=== PATIENT | female | born 1945 | race Caucasian/White ===

== ENCOUNTER 2018-05-29 13:28 | Inpatient (IN) | payer MEDICARE, OTHER ==
[~2018-05-29] VITALS: Ht 157.5 cm; Wt 68.0 kg
--- NOTE | 2018-05-29 13:38 | NUR ---
Patient states she does not have her medication list with her. Her "friends" left her here with no name or number. She has no family here, only "cousins in [place]"
--- NOTE | 2018-05-29 14:08 | NUR ---
PT IS IN ROOM #2B UNDER DIRECT OBSERVATION OF DAVID ROBERTO. DR NOBLES EVALUATED THE PT.
--- NOTE | 2018-05-29 14:20 | NUR ---
Patient is heard screaming and cursing at ER staff. Patient is not following simple commands at this time. Reorientation, redirection and assurances were provided. Monitored closely.
[2018-05-29 14:26] LABS: BASOPHILS % (AUTO) 0.5 % (0.0-2.0); EOSINOPHILS % (AUTO) 0.3 % (0.0-7.0); HEMATOCRIT 37.7 % (31.2-41.9); HEMOGLOBIN 12.6 g/dL (10.9-14.3); LYMPHOCYTES % (AUTO) 17.3 % (20.5-51.5); MEAN CORPUSCULAR HEMOGLOBIN 29.1 uug (24.7-32.8); MEAN CORPUSCULAR HGB CONC 33 g/dL (32.3-35.6); MEAN CORPUSCULAR VOLUME 87.3 fL (75.5-95.3); MONOCYTES # (AUTO) 0.6 K/uL (2.0-10.0); NEUTROPHILS # (AUTO) 3.9 K/uL (1.8-8.9); NEUTROPHILS % (AUTO) 70.9 % (38.5-71.5); PLATELET COUNT (AUTO) 305 K/uL (179-408); RED BLOOD CELL COUNT(AUTO) 4.32 MIL/uL (3.63-4.92); WHITE BLOOD COUNT (AUTO) 5.5 K/uL (3.8-11.8)
--- NOTE | 2018-05-29 14:28 | NUR ---
Melany Quijano was called@[phone]. Dr Moore is at bedside.
[2018-05-29] MEDS ORDERED: LORAZEPAM 2 MG/1 ML VIAL IM ONE (14:30)
[2018-05-29] MEDS ORDERED: HALOPERIDOL LACTATE 5 MG/1 ML VIAL IM ONE (14:30)
[2018-05-29] MEDS ORDERED: diphenhydrAMINE 50 MG/1 ML VIAL IM ONE (14:30)
[2018-05-29] MEDS ORDERED: diphenhydrAMINE 50 MG/1 ML VIAL ONE (14:32)
[2018-05-29] MEDS ORDERED: LORAZEPAM 2 MG/1 ML VIAL ONE (14:32)
[2018-05-29] MEDS ORDERED: HALOPERIDOL LACTATE 5 MG/1 ML VIAL ONE (14:32)
[2018-05-29 14:50] LABS: CARBON DIOXIDE 30 mmol/L (21-32); CHLORIDE 100 mmol/L (98-107); CREATININE 0.8 mg/dL (0.6-1.3); GLUCOSE 87 mg/dL (74-106); THYROID STIMULATING HORMONE 0.037 mIU/mL (0.358-3.740); UREA NITROGEN, BLOOD 19 mg/dL (7-18)
[2018-05-29 14:55] LABS: ALANINE AMINOTRANSFERASE 18 U/L (14-59); ALKALINE PHOSPHATASE 169 U/L (50-136); ASPARTATE AMINOTRANSFERASE 28 U/L (15-37); BILIRUBIN,DIRECT 0.1 mg/dL (0.0-0.2); BILIRUBIN,TOTAL 0.3 mg/dL (0.2-1.0); TOTAL PROTEIN, SERUM 8.2 g/dL (6.4-8.2)
--- NOTE | 2018-05-29 14:55 | NUR ---
CODE TAMAYO IS CLEAR . PT REQUESTED FOOOD TRAY. PT IS EATING AT THIS TIME. SECURITY AT THE BEDSIDE. CONTINUE TO MONITOR THE PT.
[2018-05-29 14:56] LABS: ACETAMINOPHEN < 2.0 ug/mL (10-30); ETHANOL < 3 MG/DL (0-0)
[2018-05-29] MEDS ORDERED: OLANZAPINE 10 MG VIAL IM ONE ×2 (16:33→16:45)
[2018-05-29 16:54] LABS: *BILIRUBIN,URIN NEGATIVE (NEGATIVE); *BLOOD, URINE NEGATIVE (NEGATIVE); *CLARITY,URINE CLEAR (CLEAR); *COLOR,URINE YELLOW (YELLOW); *KETONES,URINE NEGATIVE (NEGATIVE); *PROTEIN,URINE NEGATIVE (NEGATIVE); *UROBILINOGEN,URINE 0.2 E.U./dl (NORMAL); LEUKOCYTE ESTERASE ,URINE NEGATIVE (NEGATIVE); NITRITE, URINE NEGATIVE (NEGATIVE); UGLUCOSE NEGATIVE (NEGATIVE)
[2018-05-29 17:01] LABS: *AMPHETAMINE, URINE NEGATIVE (NEGATIVE); *BARBITURATE, URINE NEGATIVE (NEGATIVE); *CANNABINOID, URINE NEGATIVE (NEGATIVE); *COCCAINE, URINE NEGATIVE (NEGATIVE); *OPIATE, URINE NEGATIVE (NEGATIVE); *PHENCYCLIDINE SCREEN,URINE NEGATIVE (NEGATIVE)
[2018-05-29 17:18] LABS: BACTERIA,URINE NONE SEEN /HPF (NONE SEEN); RBC,URINE 0-3 /HPF (0-3); SQUAMOUS EPITHELIAL CELL,UR FEW /HPF (NONE SEEN); WBC,URINE 0-3 /HPF (0-3)
--- NOTE | 2018-05-29 17:40 | NUR ---
PT IS RESTING COMFORTABLY IN BED. SITTER AT THE BEDSIDE. CONTINUE TO MONITOR THE PT.
--- NOTE | 2018-05-29 19:28 | NUR ---
RECEIVED SHIFT REPORT FROM YOSI LARRY.
--- NOTE | 2018-05-29 19:53 | NUR ---
GAVE ADMITTING REPORT TO YOSI ASHLEY.
--- NOTE | 2018-05-29 20:00 | NUR ---
72 Y. O. FEMALE BROUGHT TO MED SURG UNIT WHICH IS OVERFLOW OF GEROPSYCH FROM ER VIA GURNEY, ACCOMPANIED BY A STAFF. PT ON 5150 FOR GD. ACCORDING TO THE HOLD SHE HAVE ELOPED FROM HER PLACEMENTS TWICE AND BROKE A WINDOW AND SHE IS STATING :SUICIDAL INTENT TO OVERDOSE ON PILLS.RN CONCURS WITH THE HOLD. ADVISEMENT AND PATIENT RIGHTS HANDBOOK GIVEN. UPON FACE TO FACE ASSESSMENT, PT APPEARS TO REFLECT WHAT IS ON THE HOLD. PT IS A+OX2 AND PT AGREED TO CONTRACT FOR SAFETY INSIDE HOSPITAL. PT NEEDS REORIENTATION AND REDIRECTION.PT WANTS TO GO HOME. PT TELLING US MANAGER MORTGAGE AND ME THAT THERE'S A MAN WHO WANTS TO TAKE HER PROPERTY.SHE REALLY WANTS TO GO HOME.SENIOR CARE ASSESSMENT DONE.PT REFUSED TO TAKE HER PICTURES. WANTS TO GET OUT OF THE HOSPITAL. DEMAND STAFF TO GET HER A PHONE SO THAT SHE CALL. SITTER AT BEDSIDE FOR SAFETY. WILL CONTINUE TO MONITOR.
[2018-05-29 20:28] VITALS: BP 167/82
[2018-05-29] MEDS ORDERED: MAG HYDROX/AL HYDROX/SIMETH 30 ML LIQUID UDC PO PRN (21:00)
[2018-05-29] MEDS ORDERED: MAGNESIUM HYDROXIDE 30 ML LIQUID UDC PO PRN (21:00)
[2018-05-30] MEDS: LORAZEPAM 0.5 MG TABLET PO PRN (00:26)
[2018-05-30] MEDS: TEMAZEPAM 7.5 MG CAPSULE PO PRN (00:26)
--- NOTE | 2018-05-30 06:18 | NUR ---
PT SLEPT 7 HOURS. PT COMPLIANT WITH CARE BUT NEEDS REORIENTAION. PT HAD OCCASIONAL COUGH. PRESCRIBED MEDICATION GIVEN AND PT TOLERATED IT WELL. PT NEEDS REORIENTATION AND REDIRECTION. PT TRYING TO GET OUT OF THE BED. PT WANTS TO GO HOME. DEMANDING DOCTOR TO SEE HER RIGHT AWAY. EXPLAINED TO THE PT THAT SHE'S ON HOLD AND WHY SHE'S ON HOLD. PT SAID THE CONTENT ON THE PAPER FOR THE HOLD IS LYING. CHARGE NURSE AWARE OF THE SITUATION. SITTER AT BEDSIDE. SAFETY AND COMFORT PROVIDED.
--- NOTE | 2018-05-30 10:33 | NUR ---
PATIENT TO BE TRANSFEERED TO MHU FLOOR. REPORT GIVEN TO VIVIANA.
[2018-05-30] MEDS ORDERED: DEXTROSE 50% 50 ML DISP.SYRIN IV PRN (11:30)
[2018-05-30] MEDS ORDERED: INSULIN REGULAR, HUMAN 300 UNIT/3 ML VIAL SQ PRN (11:30)
[2018-05-30] MEDS: BLOOD SUGAR DIAGNOSTIC 1 EACH STRIP VI SCH ×3 (12:37→20:47)
--- NOTE | 2018-05-30 12:37 | NUR ---
Gps/Roll Forming Machine Set Up Operator- Patient verbalizing anger, claimed she wants to see the Doctor right away claimed she does not belong here, she does not have psych. issues. Patient requesting have her red purse by her, informed she cannot have her pruse w/ her, will be given back to her when she is ready to leave. Reviewed Psych.unit routine and rules. Eating lunch in the dinning room at this time.
--- NOTE | 2018-05-30 15:28 | NUR ---
Spoke with Lenny from [facility]. Asked for the list of the medications. Lenny informed that the patient lived there for only 2 weeks before patient eloped in December 2017. Lenny stated that he would email the list of the medications that he has on her.
[2018-05-30] MEDS ORDERED: ASCO500C18 PO (15:45)
--- NOTE | 2018-05-30 15:50 | NUR ---
Gps/Bee Breeder- Informed patient she can go to her assigned room 141-B , patient refused, stated," i dont need to be in any room, i am leaving as soon as i see my Doctor".Remains to stay iby the Nurses station , redirected patient to go to activity room, but refused.
[2018-05-30] MEDS ORDERED: CHOL200074 PO (15:52)
[2018-05-30] MEDS ORDERED: FERR325T28 PO (15:52)
[2018-05-30] MEDS ORDERED: DOCU-141 PO (15:52)
[2018-05-30] MEDS ORDERED: DULO60CA45 PO (15:52)
[2018-05-30] MEDS ORDERED: LEVO200T PO (15:56)
[2018-05-30 16:00] VITALS: BP 125/79
[2018-05-30] MEDS ORDERED: LOSA25TA3 PO (16:07)
[2018-05-30] MEDS ORDERED: FLUT1BLS IH (16:11)
[2018-05-30] MEDS ORDERED: MONT10TA22 PO (16:11)
--- NOTE | 2018-05-30 17:29 | NUR ---
Gps/Side Panel Hanger- Ambulates around with front wheel walker , demanding to use the phone . Instructed to stay in the dinning room during meals.Noted couple of time pushing the door , informed patient she is not leaving today. Showed her room.
[2018-05-30] MEDS ORDERED: AMIT50TA3 PO (17:33)
[2018-05-30] MEDS ORDERED: TRIA15CR2 TP (17:34)
[2018-05-30] MEDS ORDERED: MONT10TA25 PO (17:45)
[2018-05-30] MEDS ORDERED: CYCL5TAB PO (17:45)
[2018-05-30] MEDS ORDERED: RANI150C4 PO (17:45)
[2018-05-30] MEDS ORDERED: CYCL30DR EACHEYE (17:45)
[2018-05-30] MEDS ORDERED: FURO20TA4 PO (17:45)
[2018-05-30] MEDS: OLANZAPINE 2.5 MG TABLET PO SCH (20:47)
[2018-05-30 21:23] VITALS: BP 167/88
[2018-05-31] MEDS: CLONIDINE HCL 0.1 MG TABLET PO PRN (06:46)
[2018-05-31 07:30] VITALS: BP 150/91
[2018-05-31] MEDS: FAMOTIDINE 20 MG TABLET PO SCH (08:52)
[2018-05-31] MEDS: LOSARTAN POTASSIUM 25 MG TABLET PO SCH (08:53)
[2018-05-31] MEDS: DOCUSATE SODIUM 100 MG CAPSULE PO SCH (08:53)
[2018-05-31] MEDS: MONTELUKAST SODIUM 10 MG TABLET PO SCH (08:53)
[2018-05-31] MEDS: FUROSEMIDE 20 MG TABLET PO SCH (08:53)
[2018-05-31] MEDS: FERROUS SULFATE 325 MG TABEC PO SCH (08:53)
[2018-05-31] MEDS: LEVOTHYROXINE SODIUM 200 MCG TABLET PO SCH (09:19)
[2018-05-31] MEDS: FLUTICASONE/VILANTEROL 1 EACH BLST.W.DEV IH SCH (09:23)
[2018-05-31] MEDS: ACETAMINOPHEN 325 MG TABLET PO PRN (11:33)
--- NOTE | 2018-05-31 15:24 | NUR ---
Initial Discharge Instructions: Patient had been a resident at [facility] [[address] [place] [address]; [phone]]. Pt reportedly broke a window in that facility and attempted to elope. Spoke with patient's conservator, Alex Balderas ([phone]) who reports that the patient is not welcome back at that facility and would like patient placed in a more secure facility (i.e. locked SNF). Per pt, "I'm not going anywhere that my conservator tells me to go...I'm going back home." SW will continue to collaborate with pt, Conservator, and MD regarding most appropriate discharge plans for this patient. SW will form a safe and proper discharge
--- NOTE | 2018-05-31 15:29 | NUR ---
PT NOTED TO BE HIGHLY AGITATE AND EASILY IRRITABLE. DEMANDING TO BE LET GO FROM HOSPITAL BECAUSE "I'M THE ONLY SANE PERSON HERE." EXPLAINED TO PT THE NATURE OF THE HOLD, AND PT DOES NOT AGREE TO IT, NOR ACCEPTS ANY EXPLANATIONS. PT THREW PENCIL ON THE FLOOR, DEMANDING ALL STAFF MEMBERS ON THE FLOOR'S NAME ON THE UNIT BECAUSE SHE WILL SANDER EVERYONE BECAUSE STAFF IS "KILLING ME". NAMES PROVIDED FOR PATIENT. PT ALSO BELIEVES PSYCHATRIST HAS A PERSONAL VENDETTA AGAINST HER, AND IS ONLY KEEPING HER AT HOSPITAL BECAUSE "SHE DOESN'T LIKE ME." ATTEMPTED TO PROVIDE EXPLANATIONS FOR PT, BUT PT IS NOT RECEPTIVE TO ANY AT THIS TIME. NOTED TO BE HIGHLY FORGETFUL AND CONFUSED AT TIMES.
[2018-05-31 16:08] VITALS: BP 122/79
[2018-05-31] MEDS: NEOMY/BACITRAC/POLYMI OINT 28.35 GM TUBE TOP SCH (16:33)
[2018-05-31] MEDS: MUPIROCIN 2% OINT 22 GM TUBE NS SCH ×2 (17:45→20:23)
--- NOTE | 2018-05-31 18:22 | NUR ---
Gps/Online Producer- Placed patient on contact isolations as a results of + Staph Aureus growth to nares. Bactroban hetal. applied to nares as ordered. Instructed patient to wear facial mask when needing to get out of her room. Patient kept insisting she does not belong here, tends to be argumentative , will not listen to explanations. Vebalized she does not was to see the Psychiatrist anymore, she does not have Psych. issues per pt. though she also verbalized she's feeling depressed just being here.
[2018-05-31 20:06] VITALS: BP 140/83
[2018-05-31] MEDS: TEMAZEPAM 7.5 MG CAPSULE PO PRN (20:21)
[2018-05-31] MEDS: OLANZAPINE 2.5 MG TABLET PO SCH (20:21)
--- NOTE | 2018-06-01 05:54 | NUR ---
PATIENT SLEPT 4 HOURS. SITTER AT BEDSIDE. WILL CONTINUE TO MONITOR AND ASSESS.
[2018-06-01] MEDS: NEOMY/BACITRAC/POLYMI OINT 28.35 GM TUBE TOP SCH ×2 (05:57→16:03)
[2018-06-01] MEDS: FUROSEMIDE 20 MG TABLET PO SCH (08:00)
[2018-06-01] MEDS: FERROUS SULFATE 325 MG TABEC PO SCH (08:00)
[2018-06-01] MEDS: LEVOTHYROXINE SODIUM 200 MCG TABLET PO SCH (08:00)
[2018-06-01] MEDS: LOSARTAN POTASSIUM 25 MG TABLET PO SCH (08:00)
[2018-06-01] MEDS: FAMOTIDINE 20 MG TABLET PO SCH (08:00)
[2018-06-01] MEDS: DOCUSATE SODIUM 100 MG CAPSULE PO SCH (08:00)
[2018-06-01] MEDS: MONTELUKAST SODIUM 10 MG TABLET PO SCH (08:00)
[2018-06-01] MEDS: MUPIROCIN 2% OINT 22 GM TUBE NS SCH ×2 (08:45→20:49)
[2018-06-01] MEDS: FLUTICASONE/VILANTEROL 1 EACH BLST.W.DEV IH SCH (08:45)
[2018-06-01 12:00] VITALS: BP 134/76
[2018-06-01 13:33] LABS: *BILIRUBIN,URIN NEGATIVE (NEGATIVE); *BLOOD, URINE Trace-intact (NEGATIVE); *CLARITY,URINE CLEAR (CLEAR); *COLOR,URINE YELLOW (YELLOW); *KETONES,URINE NEGATIVE (NEGATIVE); *PROTEIN,URINE NEGATIVE (NEGATIVE); *UROBILINOGEN,URINE 0.2 E.U./dl (NORMAL); LEUKOCYTE ESTERASE ,URINE NEGATIVE (NEGATIVE); NITRITE, URINE NEGATIVE (NEGATIVE); UGLUCOSE NEGATIVE (NEGATIVE)
[2018-06-01 13:40] LABS: BACTERIA,URINE NONE SEEN /HPF (NONE SEEN); RBC,URINE 0-3 /HPF (0-3); SQUAMOUS EPITHELIAL CELL,UR NONE SEEN /HPF (NONE SEEN); WBC,URINE NONE SEEN /HPF (0-3)
[2018-06-01 16:00] VITALS: BP 148/93
[2018-06-01] MEDS ORDERED: OLANZAPINE ZYDIS 5 MG TAB.RAPDIS PO ONE (16:00)
--- NOTE | 2018-06-01 17:37 | NUR ---
PT IS HIGHLY IRRITABLE AND ARGUMENTATIVE. THREATENING TO SANDER STAFF FOR COMPROMISING HER PATIENTS RIGHTS BY NOT RELEASING HER. ATTEMPTS TO EDUCATE AND EXPLAIN TO PT ARE UNHEARD, DUE TO PT NOT BEING RECEPTIVE TO WHAT SHE IS BEING TOLD. BELIEVES STAFF IS CONSPIRING TO KEEP HER IN THE HOSPITAL. PT NEEDY, MANIPULATIVE AND DEMANDING. EVEN WHEN ALL NEEDS ARE MET, PT CONTINUES TO DEMAND DIFFERENT NEEDS, AND WILL THREATEN "I GUESS I'M JUST GONNA GO TO MY ROOM AND KILL MYSELF THEN." 1:1 SITTER WITH PT AT ALL TIMES. PT MAKES STATEMENTS SUCH "I JUST SAW THE DOCTOR AND SHE SAID SHE'S RELEASING ME TODAY AND TO DISCHARGE ME." WHEN SPEAKING TO PSYCHIATRIST, PSYCHIATRIST STATED SHE GAVE NO SUCH ORDER. REMAINS ON ISOLATION AT THIS TIME.
[2018-06-01 20:01] VITALS: BP 148/87
[2018-06-01] MEDS: TEMAZEPAM 7.5 MG CAPSULE PO PRN (23:21)
[2018-06-02] MEDS: NEOMY/BACITRAC/POLYMI OINT 28.35 GM TUBE TOP SCH ×2 (05:32→16:17)
[2018-06-02 07:11] LABS: BILIRUBIN,TOTAL 0.2 mg/dL (0.2-1.0); CREATININE 0.8 mg/dL (0.6-1.3); MAGNESIUM 1.8 mg/dL (1.8-2.4); POTASSIUM 3.5 mmol/L (3.5-5.1); TOTAL PROTEIN, SERUM 7.5 g/dL (6.4-8.2)
[2018-06-02 07:52] LABS: BASOPHILS % (AUTO) 0.4 % (0.0-2.0); EOSINOPHILS % (AUTO) 0.8 % (0.0-7.0); HEMATOCRIT 36.9 % (31.2-41.9); HEMOGLOBIN 12.7 g/dL (10.9-14.3); LYMPHOCYTES # (AUTO) 1.1 K/uL (20.0-40.0); LYMPHOCYTES % (AUTO) 21.7 % (20.5-51.5); MEAN CORPUSCULAR HEMOGLOBIN 29.4 uug (24.7-32.8); MEAN CORPUSCULAR HGB CONC 34 g/dL (32.3-35.6); MEAN CORPUSCULAR VOLUME 85.7 fL (75.5-95.3); MONOCYTES # (AUTO) 0.8 K/uL (2.0-10.0); MONOCYTES % (AUTO) 15.5 % (0.0-11.0); NEUTROPHILS # (AUTO) 3.3 K/uL (1.8-8.9); NEUTROPHILS % (AUTO) 61.6 % (38.5-71.5); PLATELET COUNT (AUTO) 282 K/uL (179-408); RED BLOOD CELL COUNT(AUTO) 4.31 MIL/uL (3.63-4.92); WHITE BLOOD COUNT (AUTO) 5.3 K/uL (3.8-11.8)
[2018-06-02] MEDS: DOCUSATE SODIUM 100 MG CAPSULE PO SCH (08:04)
[2018-06-02] MEDS: MONTELUKAST SODIUM 10 MG TABLET PO SCH (08:04)
[2018-06-02] MEDS: FAMOTIDINE 20 MG TABLET PO SCH (08:05)
[2018-06-02] MEDS: LOSARTAN POTASSIUM 25 MG TABLET PO SCH (08:05)
[2018-06-02] MEDS: LEVOTHYROXINE SODIUM 200 MCG TABLET PO SCH (08:05)
[2018-06-02] MEDS: FERROUS SULFATE 325 MG TABEC PO SCH (08:05)
[2018-06-02] MEDS: FUROSEMIDE 20 MG TABLET PO SCH (08:05)
[2018-06-02] MEDS: LORAZEPAM 0.5 MG TABLET PO PRN ×2 (08:05→16:22)
[2018-06-02] MEDS: MUPIROCIN 2% OINT 22 GM TUBE NS SCH ×2 (08:06→20:01)
[2018-06-02] MEDS: FLUTICASONE/VILANTEROL 1 EACH BLST.W.DEV IH SCH (08:06)
[2018-06-02 08:09] VITALS: BP 184/109
[2018-06-02 09:00] VITALS: BP 138/75
[2018-06-02] MEDS ORDERED: OLANZAPINE 2.5 MG TABLET PO SCH ×2 (09:00→14:45)
[2018-06-02 11:19] LABS: BAND % (MANUAL) 2 % (0-10); LYMPHOCYTES % (MANUAL) 28 % (20-40); MONOCYTES % (MANUAL) 12 % (2-10); NEUTROPHILS % (MANUAL) 58 % (42-75)
[2018-06-02 15:28] VITALS: BP 161/94
[2018-06-02] MEDS: CLONIDINE HCL 0.1 MG TABLET PO PRN (16:22)
[2018-06-02] MEDS: ACETAMINOPHEN 325 MG TABLET PO PRN ×2 (16:22→21:09)
--- NOTE | 2018-06-02 19:18 | NUR ---
RECEIVED REPORT FROM AM SHIFT, CONT ON 1;1 SITTER FOR SAFETY. CONT TO MONITOR.
[2018-06-02 20:00] VITALS: BP 152/77
[2018-06-02] MEDS: OLANZAPINE 5 MG TABLET PO SCH (20:01)
--- NOTE | 2018-06-02 20:30 | NUR ---
PATIENT HAS EPISODES OF AGITATION, WANTING TO GO TO HER APARTMENT, CLAIM THAT SOMEONE TOOK ALL HER BELONGINGS IN HER APARTMENT. REDIRECT PATIENT THAT SHE LIVES IN A FACILITY, AND HER CONSERVATOR KNOWS WHERE ALL HER BELONGINGS, PATIENT NOT EASILY REDIRECTED, KEEPING SAYING THAT SOMEBODY WILL COME IN TO PICK HER UP. CONT ON 1;1 SITTER, FOR SAFETY.
[2018-06-02] MEDS: TEMAZEPAM 7.5 MG CAPSULE PO PRN (21:10)
--- NOTE | 2018-06-02 22:24 | NUR ---
GIVEN RESTORIL WITH NO ADVERSE REACTION NOTED, MEDICATION HAS SOME EFFECTIVENESS, PATIENT CALM AT THIS TIME, STAY IN BED, BUT RELAX, CONT TO MONITOR.
--- NOTE | 2018-06-03 05:36 | NUR ---
PATIENT SLEPT FOR 7 HRS, CONT 1;1 SITTER FOR SAFETY. PATIENT COOPERATES WITH CARE AFTER ENCOURAGEMENT. CONT TO REDIRECT BEHAVIOR, STATING THAT HIS CONSERVATOR STEEL HER BELONGINGS. CONT TO MONITOR.
[2018-06-03] MEDS: NEOMY/BACITRAC/POLYMI OINT 28.35 GM TUBE TOP SCH ×2 (06:20→16:35)
--- NOTE | 2018-06-03 07:50 | NUR ---
Received patient asleep on low back rest, not in any form of distress. Bed in low position, side rails up x 2, with 1 to 1 county administrator at bedside. Will continue to monitor.
[2018-06-03] MEDS: OLANZAPINE 2.5 MG TABLET PO SCH ×3 (08:38→16:34)
[2018-06-03] MEDS: DOCUSATE SODIUM 100 MG CAPSULE PO SCH (08:39)
[2018-06-03] MEDS: MONTELUKAST SODIUM 10 MG TABLET PO SCH (08:39)
[2018-06-03] MEDS: FAMOTIDINE 20 MG TABLET PO SCH (08:39)
[2018-06-03] MEDS: LEVOTHYROXINE SODIUM 200 MCG TABLET PO SCH (08:39)
[2018-06-03] MEDS: FUROSEMIDE 20 MG TABLET PO SCH (08:39)
[2018-06-03] MEDS: FERROUS SULFATE 325 MG TABEC PO SCH (08:39)
[2018-06-03] MEDS: FLUTICASONE/VILANTEROL 1 EACH BLST.W.DEV IH SCH (08:39)
[2018-06-03] MEDS: MUPIROCIN 2% OINT 22 GM TUBE NS SCH ×2 (08:40→20:42)
[2018-06-03] MEDS: LOSARTAN POTASSIUM 25 MG TABLET PO SCH (08:47)
--- NOTE | 2018-06-03 10:55 | NUR ---
Patient was transferred to MHU room 139A, isolation removed.
--- NOTE | 2018-06-03 11:28 | NUR ---
Firearms Report: Field Sales Engineer completed and submitted [employer]J firearms report for GD certification.
[2018-06-03] MEDS ORDERED: DIVALPROEX SPRINKLE 125 MG CAP.SPRINK PO SCH (13:00)
[2018-06-03 16:56] VITALS: BP 158/96
--- NOTE | 2018-06-03 17:05 | NUR ---
GPS: NURSING: PATIENT REPORT OF FEELING ANXIOUS AND WANTS MEDICATION FOR ANXIETY. ADMINISTER MEDICATIONS AND WILL CONTINUE TO MONITOR BEHAVIOR.
[2018-06-03] MEDS: LORAZEPAM 0.5 MG TABLET PO PRN (17:08)
[2018-06-03] MEDS: OLANZAPINE 5 MG TABLET PO SCH (20:42)
[2018-06-03 20:50] VITALS: BP 137/66
[2018-06-03] MEDS: TEMAZEPAM 7.5 MG CAPSULE PO PRN (21:48)
[2018-06-03] MEDS: ACETAMINOPHEN 325 MG TABLET PO PRN (21:49)
[2018-06-04] MEDS ORDERED: MAGNESIUM HYDROXIDE 30 ML LIQUID UDC PO PRN (06:45)
[2018-06-04] MEDS: LEVOTHYROXINE SODIUM 200 MCG TABLET PO SCH (06:51)
[2018-06-04 07:30] VITALS: BP 158/95
[2018-06-04] MEDS: FUROSEMIDE 20 MG TABLET PO SCH (08:25)
[2018-06-04] MEDS: OLANZAPINE 2.5 MG TABLET PO SCH ×3 (08:25→16:30)
[2018-06-04] MEDS: FERROUS SULFATE 325 MG TABEC PO SCH (08:29)
[2018-06-04] MEDS: FAMOTIDINE 20 MG TABLET PO SCH (08:30)
[2018-06-04] MEDS: MONTELUKAST SODIUM 10 MG TABLET PO SCH (08:30)
[2018-06-04] MEDS: DOCUSATE SODIUM 100 MG CAPSULE PO SCH (08:30)
[2018-06-04] MEDS: NEOMY/BACITRAC/POLYMI OINT 28.35 GM TUBE TOP SCH ×2 (08:32→21:00)
[2018-06-04] MEDS: MUPIROCIN 2% OINT 22 GM TUBE NS SCH ×2 (08:35→20:58)
[2018-06-04] MEDS: FLUTICASONE/VILANTEROL 1 EACH BLST.W.DEV IH SCH (08:35)
[2018-06-04] MEDS: LOSARTAN POTASSIUM 50 MG TABLET PO SCH (08:37)
[2018-06-04 17:28] VITALS: BP 146/78
[2018-06-04 20:11] VITALS: BP 146/66
[2018-06-04] MEDS: OLANZAPINE 5 MG TABLET PO SCH (20:59)
[2018-06-04] MEDS: ACETAMINOPHEN 325 MG TABLET PO PRN (21:56)
[2018-06-04] MEDS: TEMAZEPAM 7.5 MG CAPSULE PO PRN (22:38)
[2018-06-05] MEDS: LEVOTHYROXINE SODIUM 200 MCG TABLET PO SCH (06:10)
--- NOTE | 2018-06-05 06:12 | NUR ---
Pt complains that she needs stronger pain meds, states that she usually takes "8 tylenols" or oxycodone. Pt states that she is in severe pain 12/12 all over her body. Pt obliged to take PRN Tylenol. Pt states that she wants to go home. Pt states that she does not need a psychiatrist. Pt complains that she has not seen her medical doctor. Pt is very labile, needy, demanding and easily irritated. Pt complied with taking meds. Redirected accordingly.
[2018-06-05] MEDS: FUROSEMIDE 20 MG TABLET PO SCH (08:25)
[2018-06-05] MEDS: FAMOTIDINE 20 MG TABLET PO SCH (08:25)
[2018-06-05] MEDS: FLUTICASONE/VILANTEROL 1 EACH BLST.W.DEV IH SCH (08:25)
[2018-06-05] MEDS: MONTELUKAST SODIUM 10 MG TABLET PO SCH (08:25)
[2018-06-05] MEDS: FERROUS SULFATE 325 MG TABEC PO SCH (08:25)
[2018-06-05] MEDS: DOCUSATE SODIUM 100 MG CAPSULE PO SCH (08:25)
[2018-06-05] MEDS: OLANZAPINE 2.5 MG TABLET PO SCH ×2 (08:25→13:06)
[2018-06-05] MEDS: NEOMY/BACITRAC/POLYMI OINT 28.35 GM TUBE TOP SCH (08:26)
[2018-06-05] MEDS: MUPIROCIN 2% OINT 22 GM TUBE NS SCH (08:27)
[2018-06-05] MEDS: LOSARTAN POTASSIUM 50 MG TABLET PO SCH (08:29)
[2018-06-05 08:31] VITALS: BP 181/95
[2018-06-05] MEDS: LORAZEPAM 0.5 MG TABLET PO PRN ×2 (10:12→15:19)
[2018-06-05] MEDS: ACETAMINOPHEN 325 MG TABLET PO PRN (11:52)
--- NOTE | 2018-06-05 12:25 | NUR ---
Discharge Note: Patient will be discharged to [facility] [[address] [place] [address]; [phone]] via ambulance. Please arrange an ambulance for this patient. Spoke with Re at the facility who states they are ready to accept the patient today. Spoke with patients Conservator, Alex Balderas ([phone]) who is aware and agreeable with discharge plans. Patient is aware of discharge plans and is cooperative. Patient will follow-up at the facility with Dr. Adorno (Solution Spec) and Dr. Valle (Psychiatrist).
[2018-06-05 13:30] VITALS: BP 164/80
[2018-06-05] MEDS: CLONIDINE HCL 0.1 MG TABLET PO PRN (13:37)
--- NOTE | 2018-06-05 15:44 | NUR ---
GROUP ACTIVITY NOTE: GOAL Patient will actively participate in the group activity of the day or relax out in the patio room with fellow patients. INTERVENTION Leach Runner invited patient to participate in a group activity consisting of crossword puzzles and coloring held from 10:30-11:15 am out in the patio. RESPONSE The patient expressed interest in the activity . The pt. also asked if they can be given time to go outside in the patio. The pt. relaxed outside as she interacted with peers and SW. The pt. was very grateful for time out in the patio stating, Thank you, I needed some sunlight. The pt. remained calm and cooperative throughout activity. PLAN Patient will be invited to attend the next group activity.
[2018-06-05 16:00] VITALS: BP 141/79
--- NOTE | 2018-06-05 16:00 | NUR ---
GPS: Discharge Note: Patient Alert and oriented x3. Patient ambulatory with mild weak gait and continent, compliant with medication, care, able to make needs known. Denies any SI/HI, denies any AH/VH. Patient noted to be hypertensive and tachycardic and medication provided and administered. Patient provided with discharge instructions, verbalized understanding, encourage to report any SI/ HI . AV/VH to nursing staff at the facility. Patient will be discharged to [facility] [[address] [place] [address]; [phone]] via ambulance. Patient will follow-up at the facility with Dr. Adorno (Carbon Paper Coating Machine Setter) and Dr. Valle (Psychiatrist). Belonging given and accounted for, and question and concerns address. Patient refuse to take photos of bilateral feet.
[2018-06-05 16:17] VITALS: BP 164/80
--- NOTE | 2018-06-05 16:33 | NUR ---
patient current blood pressure 120/79, heart rate 114 patient continues anxious about placement frequent redirection needed for emotional support. patient provided with Ativan PRN for anxiety earlier however continued to pace about placement, patient conservator agreed to placement and patient is aware spoke with YOSI Sánchez Bank Guard at [facility] , aware of patient anxiety and current HR, agreed to accept patient.
[2018-06-05 16:37] VITALS: BP 120/79
--- NOTE | 2018-06-05 16:40 | NUR ---
Discharge via ambulance stable condition
== END 2018-06-05 16:40 | DRG 885 ==
LOC: ER 13:28 → GPSOV 19:53 → GPS 05-30 11:30 → MED 06-01 00:43 → GPSOV 06-01 01:22 → GPS 06-03 10:58
PROVIDERS: ADMIT Psychiatry & Neurology Psychiatry; ATTEND Nurse Practitioner Acute Care
DX: F23 Brief psychotic disorder (principal); F04 Amnestic disorder due to known physiological condition; F02.81 Dementia in other diseases classified elsewhere, unspecified severity, with behavioral disturbance; G30.9 Alzheimer's disease, unspecified; Z96.642 Presence of left artificial hip joint; Z96.652 Presence of left artificial knee joint; M19.072 Primary osteoarthritis, left ankle and foot; G20 Parkinson's disease; E78.5 Hyperlipidemia, unspecified; Z22.322 Carrier or suspected carrier of Methicillin resistant Staphylococcus aureus; L84 Corns and callosities; E11.9 Type 2 diabetes mellitus without complications; Z79.899 Other long term (current) drug therapy; M20.42 Other hammer toe(s) (acquired), left foot; M24.875 Other specific joint derangements left foot, not elsewhere classified; E07.81 Sick-euthyroid syndrome; I10 Essential (primary) hypertension; F41.8 Other specified anxiety disorders; M21.40 Flat foot [pes planus] (acquired), unspecified foot
CPT/HCPCS: 36415; 70030-TC; 70450; 71045; 73630; 80307; 83605; 83735; 84100; 84443; 84481; 85025; 85730; 87040; 87077; 87086; 93005; A4663; G0480; G0480-TC; J1200; J1630; J2060; J2358

== ENCOUNTER 2018-08-13 11:38 | Inpatient (IN) | payer MEDICARE, MEDICAID ==
[~2018-08-13] VITALS: Ht 170.2 cm; Wt 69.4 kg
[~2018-08-13 11:38] MED LIST: AMIT50TA3 PO; ASCO500C18 PO; CHOL200074 PO; CYCL30DR EACHEYE; CYCL5TAB PO; DOCU-141 PO; DULO60CA45 PO; FERR325T28 PO; FLUT1BLS IH; FURO20TA4 PO; LEVO200T PO; LOSA25TA3 PO; MONT10TA22 PO; MONT10TA25 PO; RANI150C4 PO; TRIA15CR2 TP
[2018-08-13] MEDS ORDERED: MAGN400O6 PO (12:16)
[2018-08-13] MEDS ORDERED: ACET325T53 PO (12:16)
[2018-08-13] MEDS ORDERED: LINA145C PO (12:16)
[2018-08-13] MEDS ORDERED: NITR0.4T SL (12:16)
[2018-08-13] MEDS ORDERED: FLUT1BLS IH (12:16)
[2018-08-13] MEDS ORDERED: SACC250C PO (12:16)
[2018-08-13] MEDS ORDERED: FAMO-132 PO (12:16)
[2018-08-13] MEDS ORDERED: MONT10TA22 PO (12:16)
[2018-08-13] MEDS ORDERED: LIDO30AD10 TD (12:16)
[2018-08-13] MEDS ORDERED: OLAN2.5T3 PO (12:16)
[2018-08-13] MEDS ORDERED: CRAN1TAB3 PO (12:16)
[2018-08-13] MEDS ORDERED: TRAZ-182 PO (12:16)
[2018-08-13] MEDS ORDERED: LEVO500T2 PO (12:16)
--- NOTE | 2018-08-13 12:30 | NUR ---
Per pt may be d/c back to her SNF. [facility] was called by Reinaldo Elliott LVN, eta [phone], trip#[id number].
--- NOTE | 2018-08-13 12:50 | NUR ---
Pt eating lunch, NAD noted.
--- NOTE | 2018-08-13 13:08 | NUR ---
Per he spoke with via telephone and pt to be admitted to m/s.
[2018-08-13 13:33] LABS: BASOPHILS % (AUTO) 0.6 % (0.0-2.0); EOSINOPHILS % (AUTO) 0.1 % (0.0-7.0); HEMATOCRIT 36.6 % (31.2-41.9); HEMOGLOBIN 12.1 g/dL (10.9-14.3); LYMPHOCYTES # (AUTO) 1.1 K/uL (20.0-40.0); LYMPHOCYTES % (AUTO) 20.8 % (20.5-51.5); MEAN CORPUSCULAR HEMOGLOBIN 27.8 uug (24.7-32.8); MEAN CORPUSCULAR HGB CONC 33 g/dL (32.3-35.6); MEAN CORPUSCULAR VOLUME 84.2 fL (75.5-95.3); MONOCYTES # (AUTO) 0.6 K/uL (2.0-10.0); MONOCYTES % (AUTO) 11.4 % (0.0-11.0); NEUTROPHILS # (AUTO) 3.6 K/uL (1.8-8.9); NEUTROPHILS % (AUTO) 67.1 % (38.5-71.5); PLATELET COUNT (AUTO) 282 K/uL (179-408); RED BLOOD CELL COUNT(AUTO) 4.35 MIL/uL (3.63-4.92); WHITE BLOOD COUNT (AUTO) 5.4 K/uL (3.8-11.8)
[2018-08-13 13:39] LABS: CARBON DIOXIDE 29 mmol/L (21-32); CHLORIDE 92 mmol/L (98-107); CREATININE 0.8 mg/dL (0.6-1.3); GLUCOSE 133 mg/dL (74-106); POTASSIUM 3.7 mmol/L (3.5-5.1); UREA NITROGEN, BLOOD 14 mg/dL (7-18)
--- NOTE | 2018-08-13 13:40 | NUR ---
Attempted to give report, assigned m/s nurse to call back.
[2018-08-13 13:45] LABS: ALANINE AMINOTRANSFERASE 18 U/L (14-59); ALKALINE PHOSPHATASE 132 U/L (50-136); ASPARTATE AMINOTRANSFERASE 19 U/L (15-37); BILIRUBIN,DIRECT 0.1 mg/dL (0.0-0.2); BILIRUBIN,TOTAL 0.3 mg/dL (0.2-1.0); TOTAL PROTEIN, SERUM 8.3 g/dL (6.4-8.2)
--- NOTE | 2018-08-13 14:20 | NUR ---
SBAR report given to Katie via telephone.
--- NOTE | 2018-08-13 14:21 | NUR ---
Pt trans to m/s floor, NAD noted.
[2018-08-13] MEDS: GUAIFENESIN/DEXTROMETHORPHAN 5 ML UDC PO PRN ×2 (15:24→21:27)
--- NOTE | 2018-08-13 15:30 | NUR ---
ADMITTED 73 FEMALE WITH DX: BRONCHITIS. PATIENT ALERT AND ORIENTED. WELL GROOMED WITH SUNGLASSES ON. 02 SATURATION ON ADMISSION WAS 90% PUT PATIENT ON 2L NASAL CANNULA AND 02 IS NOW 98%. WAS SEEN AND EXAMINED BY DR. SALINAS. SAFETY MEASURES INITIATED. BED IS LOW AND LOCKED, CALL LIGHT WITHIN REACH. WILL CONTINUE TO MONITOR.
[2018-08-13 15:31] VITALS: BP 144/75
[2018-08-13] MEDS ORDERED: MAGNESIUM HYDROXIDE 30 ML LIQUID UDC PO PRN (17:15)
[2018-08-13] MEDS ORDERED: OLANZAPINE 2.5 MG TABLET PO SCH (17:15)
[2018-08-13] MEDS ORDERED: NITROGLYCERIN 0.4 MG/TAB BOTTLE SL PRN (17:15)
[2018-08-13] MEDS: ALBUTEROL SULFATE 2.5 MG/3 ML NEBU NEB PRN ×2 (17:37→20:05)
--- NOTE | 2018-08-13 18:10 | NUR ---
PATIENT LEFT TO CT SCAN VIA WHEELCHAIR
--- NOTE | 2018-08-13 18:37 | NUR ---
PATIENT RETURNED FROM CT SCAN
--- NOTE | 2018-08-13 18:47 | NUR ---
INSERTED IV CATH ON THE LEFT FA #22 GAUGE.
--- NOTE | 2018-08-13 19:20 | NUR ---
Received patient lying in bed. AAOX4. In no acute distress. On O2 at 2LPM via NC in place. O2 sat at 95%. NSR on tele at 102/min. Noted with frequent moist cough. Requested for RT to provide breathing treatment. IV site on left FA intact and patent. Safety measure initiated and call quintero within reach.
[2018-08-13] MEDS ORDERED: LEVOFLOXACIN 500 MG/D5W 500 MG in PREMIXED 1 EACH IV SCH (20:00)
[2018-08-13] MEDS: ACIDOPHILUS/BULGARICUS CHEW TAB PO SCH (20:00)
[2018-08-13 20:39] VITALS: BP 117/50
[2018-08-13] MEDS: TRAZODONE 50 MG TABLET PO SCH (21:47)
[2018-08-13] MEDS ORDERED: TRAZODONE 50 MG TABLET GT ONE (22:45)
[2018-08-13] MEDS ORDERED: TRAZODONE 50 MG TABLET PO ONE (23:25)
[2018-08-14] VITALS: BP 130/67
--- NOTE | 2018-08-14 00:43 | NUR ---
PATIENT REMOVED TELE MONITOR, REFUSED TO HAVE IT PUT BACK EVEN AFTER PROVIDING EDUCATION. STATED "I WANT TO LEAVE IT OFF TONIGHT, WE CAN PUT IT BACK TOMORROW MORNING". CHARGE NURSE MARCE MADE AWARE.
[2018-08-14 04:00] VITALS: BP 132/62
--- NOTE | 2018-08-14 06:13 | NUR ---
AAOX4. In no acute distress. On O2 at 2LPM via NC in place. With frequent moist cough, breathing treatment provided by RT PRN.Cough medication given PRN per order. No adverse reaction noted from IV ABX.Needs attended to and met. Still refusing to have tele monitor. Safety measure maintained and call quintero within reach.
[2018-08-14] MEDS: LEVOTHYROXINE SODIUM 200 MCG TABLET PO SCH ×2 (07:00→11:50)
[2018-08-14] MEDS: PANTOPRAZOLE SODIUM 40 MG TABLET.DR PO SCH ×2 (07:00→11:50)
--- NOTE | 2018-08-14 07:01 | NUR ---
Informed day shift nurse Carmen that patient is refusing to take Synthroid and Protonix, until after breakfast. Carmen will provide medication this AM.
[2018-08-14 08:52] VITALS: BP 143/66
[2018-08-14] MEDS: ALBUTEROL SULFATE 2.5 MG/3 ML NEBU NEB PRN (08:56)
[2018-08-14] MEDS ORDERED: Medication Not On Formulary EA (Saccharomyces Boulardii (Florastor) 250 MG) PO SCH (09:00)
[2018-08-14] MEDS: ACIDOPHILUS/BULGARICUS CHEW TAB PO SCH ×2 (09:08→17:40)
[2018-08-14] MEDS: MONTELUKAST SODIUM 10 MG TABLET PO SCH (09:09)
[2018-08-14] MEDS: OLANZAPINE 2.5 MG TABLET PO SCH ×2 (09:09→20:31)
[2018-08-14] MEDS: LOSARTAN POTASSIUM 25 MG TABLET PO SCH (09:09)
[2018-08-14] MEDS: GUAIFENESIN/DEXTROMETHORPHAN 5 ML UDC PO PRN ×2 (09:10→18:29)
[2018-08-14] MEDS: LIDOCAINE 5% PATCH TD SCH (09:10)
[2018-08-14 09:11] LABS: BASOPHILS % (AUTO) 0.4 % (0.0-2.0); EOSINOPHILS % (AUTO) 0.3 % (0.0-7.0); HEMATOCRIT 37.3 % (31.2-41.9); HEMOGLOBIN 12.3 g/dL (10.9-14.3); LYMPHOCYTES # (AUTO) 1.5 K/uL (20.0-40.0); LYMPHOCYTES % (AUTO) 30.8 % (20.5-51.5); MEAN CORPUSCULAR HEMOGLOBIN 28.1 uug (24.7-32.8); MEAN CORPUSCULAR HGB CONC 33 g/dL (32.3-35.6); MEAN CORPUSCULAR VOLUME 85.1 fL (75.5-95.3); MONOCYTES # (AUTO) 0.7 K/uL (2.0-10.0); MONOCYTES % (AUTO) 15.7 % (0.0-11.0); NEUTROPHILS # (AUTO) 2.5 K/uL (1.8-8.9); NEUTROPHILS % (AUTO) 52.8 % (38.5-71.5); PLATELET COUNT (AUTO) 291 K/uL (179-408); RED BLOOD CELL COUNT(AUTO) 4.38 MIL/uL (3.63-4.92); WHITE BLOOD COUNT (AUTO) 4.7 K/uL (3.8-11.8)
[2018-08-14 09:23] LABS: ALANINE AMINOTRANSFERASE 19 U/L (14-59); ALKALINE PHOSPHATASE 129 U/L (50-136); ASPARTATE AMINOTRANSFERASE 19 U/L (15-37); BILIRUBIN,TOTAL 0.3 mg/dL (0.2-1.0); CARBON DIOXIDE 30 mmol/L (21-32); CHLORIDE 95 mmol/L (98-107); CHOLESTEROL 207 mg/dL (<200); CREATININE 0.7 mg/dL (0.6-1.3); GLUCOSE 109 mg/dL (74-106); HDL CHOLESTEROL 66 mg/dL (40-60); MAGNESIUM 1.9 mg/dL (1.8-2.4); PHOSPHOROUS 4.4 mg/dL (2.5-4.9); POTASSIUM 4.2 mmol/L (3.5-5.1); TOTAL PROTEIN, SERUM 8.3 g/dL (6.4-8.2); TRIGLYCERIDES 59 MG/DL (30-150); UREA NITROGEN, BLOOD 13 mg/dL (7-18)
[2018-08-14 09:51] LABS: LYMPHOCYTES % (MANUAL) 31 % (20-40); MONOCYTES % (MANUAL) 11 % (2-10); NEUTROPHILS % (MANUAL) 58 % (42-75)
[2018-08-14 09:55] LABS: THYROID STIMULATING HORMONE 8.172 mIU/mL (0.358-3.740)
[2018-08-14 11:38] VITALS: BP 128/58
[2018-08-14] MEDS: FLUTICASONE/VILANTEROL 1 EACH BLST.W.DEV INH SCH (11:48)
[2018-08-14] MEDS ORDERED: methylPREDNISolone SOD SUCC 125 MG/2 ML VIAL IV SCH (14:00)
[2018-08-14] MEDS: GUAIFENESIN LA 600 MG TABLET.SA PO SCH ×2 (14:04→20:32)
[2018-08-14] MEDS ORDERED: CEFTRIAXONE 1 G in IV DEXTROSE 5% 50 ML IV SCH (15:00)
[2018-08-14 15:31] VITALS: BP 153/66
[2018-08-14] MEDS: ALBUTEROL SULFATE 2.5 MG/3 ML NEBU NEB SCH ×2 (16:05→19:20)
[2018-08-14] MEDS: IPRATROPIUM BROMIDE 0.5 MG/2.5 ML NEBU NEB SCH ×2 (16:05→19:20)
[2018-08-14 19:15] VITALS: BP 142/63
--- NOTE | 2018-08-14 19:20 | NUR ---
Received patient sitting at the side of the bed. AAOX4. In no acute distress. On O2 at 2LPM via NC in place. Still noted with occasional moist cough. Denies any pain or SOB. Safety measure initiated and call quintero within reach.
[2018-08-14] MEDS: ATORVASTATIN 20 MG TABLET PO SCH (20:32)
[2018-08-14] MEDS: LEVOFLOXACIN 500 MG TABLET PO SCH (20:32)
[2018-08-14] MEDS: ACETAMINOPHEN 325 MG TABLET PO PRN (21:09)
[2018-08-14] MEDS: predniSONE 20 MG TABLET PO SCH (22:07)
[2018-08-14] MEDS: TRAZODONE 50 MG TABLET PO SCH (22:07)
[2018-08-14] MEDS ORDERED: TRAZODONE 100 MG TABLET PO ONE (22:30)
[2018-08-15] MEDS: predniSONE 20 MG TABLET PO SCH ×3 (06:14→20:45)
--- NOTE | 2018-08-15 06:21 | NUR ---
Slept well last night. In no acute distress. On O2 at 2LPM via NC in place. Still with occasional moist cough. Denies any further pain. No SOB. Safety measure maintained and call quintero within reach.
[2018-08-15 06:54] LABS: BASOPHILS % (AUTO) 0.3 % (0.0-2.0); HEMATOCRIT 35.2 % (31.2-41.9); HEMOGLOBIN 11.7 g/dL (10.9-14.3); LYMPHOCYTES # (AUTO) 0.5 K/uL (20.0-40.0); LYMPHOCYTES % (AUTO) 12.1 % (20.5-51.5); MEAN CORPUSCULAR HEMOGLOBIN 28.3 uug (24.7-32.8); MEAN CORPUSCULAR HGB CONC 33 g/dL (32.3-35.6); MEAN CORPUSCULAR VOLUME 85.2 fL (75.5-95.3); MONOCYTES # (AUTO) 0.1 K/uL (2.0-10.0); MONOCYTES % (AUTO) 2.6 % (0.0-11.0); NEUTROPHILS # (AUTO) 3.8 K/uL (1.8-8.9); PLATELET COUNT (AUTO) 273 K/uL (179-408); RED BLOOD CELL COUNT(AUTO) 4.13 MIL/uL (3.63-4.92); WHITE BLOOD COUNT (AUTO) 4.4 K/uL (3.8-11.8)
[2018-08-15 06:59] LABS: CARBON DIOXIDE 28 mmol/L (21-32); CHLORIDE 97 mmol/L (98-107); CREATININE 0.7 mg/dL (0.6-1.3); GLUCOSE 150 mg/dL (74-106); MAGNESIUM 1.9 mg/dL (1.8-2.4); PHOSPHOROUS 4.8 mg/dL (2.5-4.9); POTASSIUM 4.4 mmol/L (3.5-5.1); UREA NITROGEN, BLOOD 17 mg/dL (7-18); URIC ACID 4.4 mg/dL (2.6-6.0)
--- NOTE | 2018-08-15 07:00 | NUR ---
Patient A/O 4, On O2 at 2LPM via NC in place. Still moist cough, crackles on auscultation. Denies any further pain. No SOB. Safety measure maintained and call quintero within reach.
[2018-08-15 07:18] LABS: THYROID STIMULATING HORMONE 2.234 mIU/mL (0.358-3.740)
[2018-08-15] MEDS: ALBUTEROL SULFATE 2.5 MG/3 ML NEBU NEB SCH ×4 (07:23→19:31)
[2018-08-15] MEDS: IPRATROPIUM BROMIDE 0.5 MG/2.5 ML NEBU NEB SCH ×4 (07:23→19:31)
[2018-08-15] MEDS ORDERED: LINZESS 145MCG CAPSULE PO SCH (07:30)
[2018-08-15] MEDS: LEVOTHYROXINE SODIUM 50 MCG TABLET PO SCH (07:43)
[2018-08-15] MEDS: PANTOPRAZOLE SODIUM 40 MG TABLET.DR PO SCH (07:43)
[2018-08-15] MEDS: LEVOTHYROXINE SODIUM 200 MCG TABLET PO SCH (07:44)
[2018-08-15] MEDS: LIDOCAINE 5% PATCH TD SCH (07:44)
[2018-08-15] MEDS: ACETAMINOPHEN 325 MG TABLET PO PRN ×2 (07:51→20:44)
[2018-08-15] MEDS: GUAIFENESIN/DEXTROMETHORPHAN 5 ML UDC PO PRN (08:07)
[2018-08-15] MEDS: ACIDOPHILUS/BULGARICUS CHEW TAB PO SCH ×2 (08:29→17:27)
[2018-08-15] MEDS: FLUTICASONE/VILANTEROL 1 EACH BLST.W.DEV INH SCH (08:29)
[2018-08-15] MEDS: MONTELUKAST SODIUM 10 MG TABLET PO SCH (08:30)
[2018-08-15] MEDS: CARBIDOPA/LEVODOPA 25-100MG TABLET PO SCH ×3 (08:30→17:26)
[2018-08-15] MEDS: OLANZAPINE 2.5 MG TABLET PO SCH ×2 (08:31→20:46)
[2018-08-15] MEDS: LOSARTAN POTASSIUM 25 MG TABLET PO SCH (08:35)
[2018-08-15] MEDS: GUAIFENESIN LA 600 MG TABLET.SA PO SCH ×2 (08:35→20:45)
[2018-08-15 11:28] VITALS: BP 125/66
[2018-08-15] MEDS ORDERED: TRAZODONE 50 MG TABLET PO PRN (12:45)
[2018-08-15] MEDS ORDERED: TRAZODONE 100 MG TABLET PO PRN (13:15)
[2018-08-15] MEDS: ACETYLCYSTEINE 20% 800 MG/4 ML VIAL NEB SCH ×2 (15:42→22:40)
[2018-08-15 16:00] VITALS: BP 129/66
--- NOTE | 2018-08-15 19:23 | NUR ---
Patient A/O 4, On O2 at 3LPM via NC in place was increased so patient is 94%. Still moist cough, crackles on auscultation. Denies any further pain. No SOB. orders cared out. Safety measure maintained and call quintero within reach.
[2018-08-15 20:00] VITALS: BP 130/72
[2018-08-15] MEDS: LEVOFLOXACIN 500 MG TABLET PO SCH (20:45)
[2018-08-15] MEDS: ATORVASTATIN 20 MG TABLET PO SCH (20:45)
--- NOTE | 2018-08-15 21:00 | NUR ---
Patient awake & alert watching TV, no SOB denies chest pain. Vital signs WNL. Routine night meds given. MD in room. Seen & examined by Dr. Mueller.
[2018-08-15] MEDS: ALBUTEROL SULFATE 2.5 MG/3 ML NEBU NEB PRN (22:40)
[2018-08-16] MEDS: predniSONE 20 MG TABLET PO SCH ×2 (05:28→06:18)
[2018-08-16] MEDS: PANTOPRAZOLE SODIUM 40 MG TABLET.DR PO SCH ×2 (05:28→06:16)
[2018-08-16] MEDS: LEVOTHYROXINE SODIUM 200 MCG TABLET PO SCH ×3 (05:31→06:19)
[2018-08-16] MEDS: LEVOTHYROXINE SODIUM 50 MCG TABLET PO SCH ×3 (05:31→06:20)
--- NOTE | 2018-08-16 05:46 | NUR ---
Patient refused getting her blood drawn. Patient refused to take her morning meds too. No sign of distress noted. Vital signs WNL.
[2018-08-16] MEDS: ACETYLCYSTEINE 20% 800 MG/4 ML VIAL NEB SCH ×2 (07:25→15:48)
[2018-08-16] MEDS: IPRATROPIUM BROMIDE 0.5 MG/2.5 ML NEBU NEB SCH ×3 (07:25→15:48)
[2018-08-16] MEDS: ALBUTEROL SULFATE 2.5 MG/3 ML NEBU NEB SCH ×3 (07:25→15:48)
--- NOTE | 2018-08-16 07:53 | NUR ---
Patient A/O 4, On O2 at 3L via NC in place. Still moist cough, crackles on auscultation. Denies any further pain. No SOB. Safety measure maintained and call quintero within reach.
[2018-08-16] MEDS ORDERED: KETOCONAZOLE 2% SHAMPOO 120 ML BOTTLE TP SCH (09:00)
[2018-08-16] MEDS: LIDOCAINE 5% PATCH TD SCH (09:16)
[2018-08-16] MEDS: ACIDOPHILUS/BULGARICUS CHEW TAB PO SCH ×2 (09:16→16:59)
[2018-08-16] MEDS: CARBIDOPA/LEVODOPA 25-100MG TABLET PO SCH ×3 (09:17→16:59)
[2018-08-16] MEDS: GUAIFENESIN LA 600 MG TABLET.SA PO SCH (09:17)
[2018-08-16] MEDS: MONTELUKAST SODIUM 10 MG TABLET PO SCH (09:17)
[2018-08-16] MEDS: LOSARTAN POTASSIUM 25 MG TABLET PO SCH (09:19)
[2018-08-16] MEDS: OLANZAPINE 2.5 MG TABLET PO SCH (09:20)
[2018-08-16] MEDS: FLUTICASONE/VILANTEROL 1 EACH BLST.W.DEV INH SCH (09:21)
[2018-08-16] MEDS: GUAIFENESIN/DEXTROMETHORPHAN 5 ML UDC PO PRN (09:29)
[2018-08-16 09:36] LABS: BASOPHILS % (AUTO) 0.2 % (0.0-2.0); HEMATOCRIT 36.2 % (31.2-41.9); HEMOGLOBIN 12.1 g/dL (10.9-14.3); LYMPHOCYTES # (AUTO) 0.8 K/uL (20.0-40.0); LYMPHOCYTES % (AUTO) 8.4 % (20.5-51.5); MEAN CORPUSCULAR HEMOGLOBIN 28.5 uug (24.7-32.8); MEAN CORPUSCULAR HGB CONC 33 g/dL (32.3-35.6); MEAN CORPUSCULAR VOLUME 85.6 fL (75.5-95.3); MONOCYTES # (AUTO) 0.4 K/uL (2.0-10.0); MONOCYTES % (AUTO) 4.8 % (0.0-11.0); NEUTROPHILS # (AUTO) 7.8 K/uL (1.8-8.9); NEUTROPHILS % (AUTO) 86.6 % (38.5-71.5); PLATELET COUNT (AUTO) 304 K/uL (179-408); RED BLOOD CELL COUNT(AUTO) 4.23 MIL/uL (3.63-4.92)
[2018-08-16 09:48] LABS: CARBON DIOXIDE 25 mmol/L (21-32); CHLORIDE 97 mmol/L (98-107); GLUCOSE 190 mg/dL (74-106); MAGNESIUM 1.9 mg/dL (1.8-2.4); PHOSPHOROUS 3.5 mg/dL (2.5-4.9); POTASSIUM 3.8 mmol/L (3.5-5.1); UREA NITROGEN, BLOOD 23 mg/dL (7-18)
[2018-08-16 11:08] VITALS: BP 131/74
--- NOTE | 2018-08-16 15:00 | NUR ---
PATIENT BECAME AGGRESSIVE AND FRUSTRATED
--- NOTE | 2018-08-16 16:42 | NUR ---
PATIENT WAS PUT ON HOLD [address] CHAMORRO PATIENT DISCHARGED TO MHU
== END 2018-08-16 17:09 | DRG 190 ==
LOC: ER 11:38 → MED 14:13 → TELE 17:26 → MED 08-14 14:44 → GPS 08-16 16:51
PROVIDERS: ADMIT Internal Medicine; ATTEND Internal Medicine
DX: J44.1 Chronic obstructive pulmonary disease with (acute) exacerbation (principal); J69.0 Pneumonitis due to inhalation of food and vomit; E87.1 Hypo-osmolality and hyponatremia; D68.59 Other primary thrombophilia; J90 Pleural effusion, not elsewhere classified; J98.11 Atelectasis; J44.0 Chronic obstructive pulmonary disease with (acute) lower respiratory infection; J40 Bronchitis, not specified as acute or chronic; M79.7 Fibromyalgia; E03.9 Hypothyroidism, unspecified; E78.5 Hyperlipidemia, unspecified; Z79.890 Hormone replacement therapy; Z87.891 Personal history of nicotine dependence; Z98.82 Breast implant status; Z96.642 Presence of left artificial hip joint; Z96.652 Presence of left artificial knee joint; Z96.1 Presence of intraocular lens; Z88.5 Allergy status to narcotic agent; F32.9 Major depressive disorder, single episode, unspecified; Z74.09 Other reduced mobility; F03.90 Unspecified dementia, unspecified severity, without behavioral disturbance, psychotic disturbance, mood disturbance, and anxiety; E11.65 Type 2 diabetes mellitus with hyperglycemia; E88.09 Other disorders of plasma-protein metabolism, not elsewhere classified; G20 Parkinson's disease; I11.9 Hypertensive heart disease without heart failure; M19.90 Unspecified osteoarthritis, unspecified site; Z79.51 Long term (current) use of inhaled steroids; R53.82 Chronic fatigue, unspecified; K21.9 Gastro-esophageal reflux disease without esophagitis; I70.0 Atherosclerosis of aorta; E87.79 Other fluid overload; D71 Functional disorders of polymorphonuclear neutrophils
CPT/HCPCS: 36415; 70030-TC; 71045; 71250; 82533; 83605; 83735; 84100; 84300; 84443; 84550; 85025; 87040; 93005; 93307; 94640; 94664; A4663; G0378; J0696; J1956; J2930; J3590; J7050; J7060; J7512

== ENCOUNTER 2018-08-16 17:05 | Inpatient (IN) | payer MEDICARE, MEDICAID ==
[~2018-08-16] VITALS: Ht 170.2 cm; Wt 71.7 kg
--- NOTE | 2018-08-16 17:00 | NUR ---
PT ARRIVED ON W/C ACCOMPANIED BY HOSPITAL STAFF, FROM [facility]. PT IS CURRENTLY ON AN INVOLUNTARY HOLD. PT IS AOX4, HYPERVERBAL, NEEDY, AND DEMANDING AT TIMES. PT VERBALIZES SHE WANTS TO LEAVE BECAUSE "I DON'T BELONG IN A PSYCH UNIT. DO I LOOK CRAZY TO YOU?" NO AGGRESSIVE OR COMBATIVE BEHAVIOR NOTED AT THIS TIME. ABLE TO MAKE ALL NEEDS KNOWN. DENIES SUICIDAL AND HOMICIDAL IDEATIONS.
[~2018-08-16 17:05] MED LIST changes: +ACET325T53 PO; -AMIT50TA3 PO; -ASCO500C18 PO; -CHOL200074 PO; +CRAN1TAB3 PO; -CYCL5TAB PO; -DULO60CA45 PO; +FAMO-132 PO; -FERR325T28 PO; +LEVO500T2 PO; +LIDO30AD10 TD; +LINA145C PO; +MAGN400O6 PO; -MONT10TA25 PO; +NITR0.4T SL; +OLAN2.5T3 PO; -RANI150C4 PO; +SACC250C PO; +TRAZ-182 PO; -TRIA15CR2 TP
[2018-08-16] MEDS ORDERED: MAG HYDROX/AL HYDROX/SIMETH 30 ML LIQUID UDC PO PRN (17:15)
[2018-08-16] MEDS ORDERED: MAGNESIUM HYDROXIDE 30 ML LIQUID UDC PO PRN ×2 (17:15→18:15)
[2018-08-16 17:17] VITALS: BP 160/80
[2018-08-16] MEDS ORDERED: ACETAMINOPHEN 325 MG TABLET PO PRN (18:15)
[2018-08-16] MEDS ORDERED: NITROGLYCERIN 0.4 MG/TAB BOTTLE SL PRN (18:15)
[2018-08-16 20:59] VITALS: BP 115/67
[2018-08-16] MEDS ORDERED: OLANZAPINE 2.5 MG TABLET PO SCH ×2 (21:00)
[2018-08-16] MEDS: ZOLPIDEM 5 MG TABLET PO PRN (22:10)
[2018-08-17] MEDS: LEVOTHYROXINE SODIUM 200 MCG TABLET PO SCH ×2 (06:45→08:22)
[2018-08-17] MEDS ORDERED: LEVOTHYROXINE SODIUM 200 MCG TABLET PO SCH (07:00)
[2018-08-17 07:30] VITALS: BP 169/82
[2018-08-17] MEDS: DOCUSATE SODIUM 100 MG CAPSULE PO SCH (08:22)
[2018-08-17] MEDS: FAMOTIDINE 20 MG TABLET PO SCH (08:23)
[2018-08-17] MEDS: LEVOFLOXACIN 500 MG TABLET PO SCH (08:23)
[2018-08-17] MEDS: predniSONE 20 MG TABLET PO SCH ×2 (08:23→17:17)
[2018-08-17] MEDS: ACIDOPHILUS/BULGARICUS CHEW TAB PO SCH ×2 (08:23→17:17)
[2018-08-17] MEDS: FUROSEMIDE 20 MG TABLET PO SCH (08:23)
[2018-08-17] MEDS: FLUTICASONE/VILANTEROL 1 EACH BLST.W.DEV IH SCH (08:24)
[2018-08-17] MEDS: LOSARTAN POTASSIUM 25 MG TABLET PO SCH (08:28)
[2018-08-17] MEDS: LEVOTHYROXINE SODIUM 50 MCG TABLET PO SCH (08:29)
[2018-08-17] MEDS: GUAIFENESIN/DEXTROMETHORPHAN 5 ML UDC PO PRN ×2 (08:49→21:26)
[2018-08-17] MEDS ORDERED: Medication Not On Formulary EA (Saccharomyces Boulardii (Florastor) 250 MG) PO SCH (09:00)
[2018-08-17] MEDS ORDERED: MONTELUKAST SODIUM 10 MG TABLET PO SCH (09:00)
[2018-08-17] MEDS ORDERED: ALBUTEROL SULFATE 2.5 MG/3 ML NEBU NEB PRN (10:45)
[2018-08-17] MEDS: IPRATROPIUM BROMIDE 0.5 MG/2.5 ML NEBU NEB SCH ×2 (14:15→21:11)
[2018-08-17] MEDS: ALBUTEROL SULFATE 2.5 MG/3 ML NEBU NEB SCH ×2 (14:15→21:11)
[2018-08-17 16:00] VITALS: BP 158/86
[2018-08-17] MEDS ORDERED: LEVOFLOXACIN 500 MG TABLET PO SCH (17:00)
[2018-08-17] MEDS: MONTELUKAST SODIUM 10 MG TABLET PO SCH (17:17)
[2018-08-17] MEDS: CYCLOSPORINE EACHEYE SCH (17:18)
[2018-08-17] MEDS: [UNRECOGNIZED DRUG - OTHER] EACHEYE SCH (17:18)
[2018-08-17 21:45] VITALS: BP 169/86
[2018-08-17 21:58] VITALS: BP 152/85
[2018-08-17] MEDS: OLANZAPINE 5 MG TABLET PO SCH (22:37)
[2018-08-18] MEDS: ZOLPIDEM 5 MG TABLET PO PRN ×2 (00:13→22:58)
[2018-08-18 07:30] VITALS: BP 191/79
[2018-08-18] MEDS: LEVOTHYROXINE SODIUM 50 MCG TABLET PO SCH (07:47)
[2018-08-18] MEDS: LEVOTHYROXINE SODIUM 200 MCG TABLET PO SCH (07:47)
[2018-08-18] MEDS: [UNRECOGNIZED DRUG - OTHER] PO SCH (07:49)
[2018-08-18] MEDS: LINZESS 145 MCG PO SCH (07:49)
[2018-08-18] MEDS: ALBUTEROL SULFATE 2.5 MG/3 ML NEBU NEB SCH ×3 (08:20→20:12)
[2018-08-18] MEDS: IPRATROPIUM BROMIDE 0.5 MG/2.5 ML NEBU NEB SCH ×3 (08:20→20:12)
[2018-08-18] MEDS: [UNRECOGNIZED DRUG - OTHER] EACHEYE SCH ×2 (08:40→18:17)
[2018-08-18] MEDS: predniSONE 20 MG TABLET PO SCH ×2 (08:40→18:16)
[2018-08-18] MEDS: FLUTICASONE/VILANTEROL 1 EACH BLST.W.DEV IH SCH (08:40)
[2018-08-18] MEDS: CYCLOSPORINE EACHEYE SCH ×2 (08:40→18:17)
[2018-08-18] MEDS: ACETAMINOPHEN 325 MG TABLET PO PRN (08:40)
[2018-08-18] MEDS: LOSARTAN POTASSIUM 25 MG TABLET PO SCH (08:41)
[2018-08-18] MEDS: DOCUSATE SODIUM 100 MG CAPSULE PO SCH (08:41)
[2018-08-18] MEDS: FAMOTIDINE 20 MG TABLET PO SCH (08:41)
[2018-08-18] MEDS: OLANZAPINE 5 MG TABLET PO SCH ×2 (08:41→20:27)
[2018-08-18] MEDS: LIDOCAINE 5% PATCH TD SCH (08:41)
[2018-08-18] MEDS: ACIDOPHILUS/BULGARICUS CHEW TAB PO SCH ×2 (08:41→18:16)
[2018-08-18] MEDS: FUROSEMIDE 20 MG TABLET PO SCH (08:41)
[2018-08-18] MEDS: LEVOFLOXACIN 500 MG TABLET PO SCH (08:48)
[2018-08-18] MEDS: CARBIDOPA/LEVODOPA 25-100MG TABLET PO SCH ×2 (12:39→18:16)
[2018-08-18] MEDS: GUAIFENESIN/DEXTROMETHORPHAN 5 ML UDC PO PRN (12:43)
[2018-08-18 16:00] VITALS: BP 155/75
[2018-08-18] MEDS: MONTELUKAST SODIUM 10 MG TABLET PO SCH (18:16)
[2018-08-18 20:00] VITALS: BP 166/80
--- NOTE | 2018-08-18 20:30 | NUR ---
gps: patient c/o pain 04/24. Tylenol for pain offered. patient stated i don't want tylenol. i am ok. tylenol is not strong enough for my pain. Dr. manriquez was at patient bedside made aware of patient pain medication concern.Md stated i can't ordered her strong medication.only tylenol.
[2018-08-18] MEDS: CLONIDINE HCL 0.1 MG TABLET PO PRN (21:52)
[2018-08-18 23:00] VITALS: BP 139/78
[2018-08-19] MEDS: LEVOTHYROXINE SODIUM 200 MCG TABLET PO SCH (06:28)
[2018-08-19] MEDS: LEVOTHYROXINE SODIUM 50 MCG TABLET PO SCH (06:29)
--- NOTE | 2018-08-19 06:42 | NUR ---
GPS: REMAIN COOPERATIVE WITH MEDICATIONS AND CARE LAST NIGHT. REFUSED AM PO MEDICATIONS.SLEPT 7 HRS AFTER SLEEPING MEDICATIONS GIVEN. BLOOD PRESSURE WAS 162/72 @ HS. CALLED MD RECEIVED CLONIDINE PRN ORDERED. FIRST DOSE GIVEN AND EFFECTIVE.PATIENT IS NEEDY. CONTINUE PLAN OF CARE.
[2018-08-19 07:30] VITALS: BP 167/90
[2018-08-19] MEDS: ALBUTEROL SULFATE 2.5 MG/3 ML NEBU NEB SCH ×4 (07:35→20:09)
[2018-08-19] MEDS: IPRATROPIUM BROMIDE 0.5 MG/2.5 ML NEBU NEB SCH ×4 (07:35→19:30)
[2018-08-19 07:59] LABS: CARBON DIOXIDE 29 mmol/L (21-32); CHLORIDE 100 mmol/L (98-107); CREATININE 0.7 mg/dL (0.6-1.3); GLUCOSE 97 mg/dL (74-106); POTASSIUM 3.7 mmol/L (3.5-5.1); UREA NITROGEN, BLOOD 20 mg/dL (7-18); URIC ACID 4.5 mg/dL (2.6-6.0)
[2018-08-19] MEDS: FLUTICASONE/VILANTEROL 1 EACH BLST.W.DEV IH SCH (08:31)
[2018-08-19] MEDS: CARBIDOPA/LEVODOPA 25-100MG TABLET PO SCH ×3 (08:31→16:43)
[2018-08-19] MEDS: [UNRECOGNIZED DRUG - OTHER] EACHEYE SCH ×2 (08:31→16:36)
[2018-08-19] MEDS: LINZESS 145 MCG PO SCH (08:31)
[2018-08-19] MEDS: CYCLOSPORINE EACHEYE SCH ×2 (08:31→16:36)
[2018-08-19] MEDS: [UNRECOGNIZED DRUG - OTHER] PO SCH (08:31)
[2018-08-19] MEDS: CLONIDINE HCL 0.1 MG TABLET PO PRN (08:32)
[2018-08-19] MEDS: OLANZAPINE 5 MG TABLET PO SCH ×2 (08:32→20:24)
[2018-08-19] MEDS: DOCUSATE SODIUM 100 MG CAPSULE PO SCH (08:32)
[2018-08-19] MEDS: FAMOTIDINE 20 MG TABLET PO SCH (08:33)
[2018-08-19] MEDS: LOSARTAN POTASSIUM 25 MG TABLET PO SCH (08:33)
[2018-08-19] MEDS: ACIDOPHILUS/BULGARICUS CHEW TAB PO SCH ×2 (08:33→16:35)
[2018-08-19] MEDS: predniSONE 20 MG TABLET PO SCH ×2 (08:33→17:19)
[2018-08-19] MEDS: LEVOFLOXACIN 500 MG TABLET PO SCH (08:33)
[2018-08-19] MEDS: FUROSEMIDE 20 MG TABLET PO SCH (08:33)
[2018-08-19] MEDS: LIDOCAINE 5% PATCH TD SCH (08:35)
[2018-08-19] MEDS ORDERED: AMLODIPINE 2.5 MG TABLET PO SCH (09:00)
[2018-08-19] MEDS: ACETAMINOPHEN 325 MG TABLET PO PRN (12:57)
[2018-08-19] MEDS: LORAZEPAM 1 MG TABLET PO PRN (14:15)
--- NOTE | 2018-08-19 14:21 | NUR ---
Initial Discharge Instructions: Patient comes from [facility] [[address] [place] [address]/ ]. Per patient, she dislikes the SNF and would like to be placed elsewhere. Per Alex valle ([phone]) he is in agreement with finding her a new SNF placement locally. In addition, because the pt.s home is now in escrow, Robin plan is to be able to use that money to place her in a board and care in [place] within a month or so. KODI Fu and other SW will continue to collaborate with conservator, and interdisciplinary team to have a safe and proper discharge plan.
[2018-08-19 15:36] VITALS: BP 148/80
[2018-08-19] MEDS: MONTELUKAST SODIUM 10 MG TABLET PO SCH (17:19)
[2018-08-19 20:35] VITALS: BP 150/74
[2018-08-19] MEDS: AMLODIPINE 5 MG TABLET PO SCH (20:59)
[2018-08-19] MEDS: ZOLPIDEM 5 MG TABLET PO PRN (22:46)
--- NOTE | 2018-08-20 06:38 | NUR ---
GPS: Remain calm and cooperative with care. no agitation noted. no c/o pain or discomfort at this time. slept 7 hrs through the night. continue plan of care.
[2018-08-20] MEDS: LEVOTHYROXINE SODIUM 50 MCG TABLET PO SCH (06:50)
[2018-08-20] MEDS: LEVOTHYROXINE SODIUM 200 MCG TABLET PO SCH (06:50)
[2018-08-20] MEDS: [UNRECOGNIZED DRUG - OTHER] PO SCH (06:55)
[2018-08-20] MEDS: LINZESS 145 MCG PO SCH (06:55)
[2018-08-20 07:30] VITALS: BP 165/89
[2018-08-20] MEDS: predniSONE 20 MG TABLET PO SCH ×2 (08:06→18:07)
[2018-08-20] MEDS: OLANZAPINE 5 MG TABLET PO SCH (08:06)
[2018-08-20] MEDS: FAMOTIDINE 20 MG TABLET PO SCH (08:07)
[2018-08-20] MEDS: CLONIDINE HCL 0.1 MG TABLET PO PRN (08:07)
[2018-08-20] MEDS: AMLODIPINE 5 MG TABLET PO SCH ×2 (08:07→21:18)
[2018-08-20] MEDS: CARBIDOPA/LEVODOPA 25-100MG TABLET PO SCH ×3 (08:07→16:52)
[2018-08-20] MEDS: ACIDOPHILUS/BULGARICUS CHEW TAB PO SCH ×2 (08:07→16:52)
[2018-08-20] MEDS: FUROSEMIDE 20 MG TABLET PO SCH (08:07)
[2018-08-20] MEDS: DOCUSATE SODIUM 100 MG CAPSULE PO SCH (08:07)
[2018-08-20] MEDS: LIDOCAINE 5% PATCH TD SCH (08:08)
[2018-08-20] MEDS: LOSARTAN POTASSIUM 25 MG TABLET PO SCH (08:08)
[2018-08-20] MEDS: [UNRECOGNIZED DRUG - OTHER] EACHEYE SCH ×2 (08:08→16:52)
[2018-08-20] MEDS: CYCLOSPORINE EACHEYE SCH ×2 (08:08→16:52)
[2018-08-20] MEDS: FLUTICASONE/VILANTEROL 1 EACH BLST.W.DEV IH SCH (08:08)
[2018-08-20] MEDS ORDERED: OLANZAPINE 5 MG TABLET PO SCH (09:00)
[2018-08-20] MEDS: ALBUTEROL SULFATE 2.5 MG/3 ML NEBU NEB SCH ×3 (09:03→20:05)
[2018-08-20] MEDS: IPRATROPIUM BROMIDE 0.5 MG/2.5 ML NEBU NEB SCH ×3 (09:03→20:05)
[2018-08-20 15:58] VITALS: BP 124/71
[2018-08-20] MEDS: MONTELUKAST SODIUM 10 MG TABLET PO SCH (18:07)
[2018-08-20 21:05] VITALS: BP 137/67
[2018-08-20] MEDS: OLANZAPINE 2.5 MG TABLET PO SCH (21:18)
[2018-08-20] MEDS: ZOLPIDEM 5 MG TABLET PO PRN (23:14)
[2018-08-20] MEDS: GUAIFENESIN/DEXTROMETHORPHAN 5 ML UDC PO PRN (23:17)
[2018-08-21 07:30] VITALS: BP 181/92
[2018-08-21] MEDS: ALBUTEROL SULFATE 2.5 MG/3 ML NEBU NEB SCH ×4 (08:10→19:50)
[2018-08-21] MEDS: IPRATROPIUM BROMIDE 0.5 MG/2.5 ML NEBU NEB SCH ×4 (08:10→19:50)
[2018-08-21] MEDS: DOCUSATE SODIUM 100 MG CAPSULE PO SCH (09:07)
[2018-08-21] MEDS: OLANZAPINE 2.5 MG TABLET PO SCH ×2 (09:07→21:01)
[2018-08-21] MEDS: ACIDOPHILUS/BULGARICUS CHEW TAB PO SCH ×2 (09:08→17:21)
[2018-08-21] MEDS: predniSONE 20 MG TABLET PO SCH ×2 (09:09→17:21)
[2018-08-21] MEDS: LOSARTAN POTASSIUM 25 MG TABLET PO SCH (09:09)
[2018-08-21] MEDS: FUROSEMIDE 20 MG TABLET PO SCH (09:09)
[2018-08-21] MEDS: AMLODIPINE 5 MG TABLET PO SCH ×2 (09:10→21:01)
[2018-08-21] MEDS: LEVOTHYROXINE SODIUM 50 MCG TABLET PO SCH (09:10)
[2018-08-21] MEDS: FAMOTIDINE 20 MG TABLET PO SCH (09:11)
[2018-08-21] MEDS: CARBIDOPA/LEVODOPA 25-100MG TABLET PO SCH ×3 (09:11→17:19)
[2018-08-21] MEDS: LEVOTHYROXINE SODIUM 200 MCG TABLET PO SCH (09:12)
[2018-08-21] MEDS: [UNRECOGNIZED DRUG - OTHER] PO SCH (09:13)
[2018-08-21] MEDS: FLUTICASONE/VILANTEROL 1 EACH BLST.W.DEV IH SCH (09:13)
[2018-08-21] MEDS: CYCLOSPORINE EACHEYE SCH ×2 (09:13→17:21)
[2018-08-21] MEDS: LINZESS 145 MCG PO SCH (09:13)
[2018-08-21] MEDS: [UNRECOGNIZED DRUG - OTHER] EACHEYE SCH ×2 (09:13→17:21)
[2018-08-21] MEDS: LIDOCAINE 5% PATCH TD SCH (09:18)
[2018-08-21 16:00] VITALS: BP 140/67
--- NOTE | 2018-08-21 16:41 | NUR ---
Process group note: GOAL: Patient will actively participate in the group discussion of the day or listen respectfully to other peers responses. INTERVENTION: Social Work Second Chef invited patient to participate in a group discussion held from 2:00-2:50 pm in the activities room. AUTOMATIC FURNACE OPERATOR and Social Work Second Chef facilitated a group discussion regarding life experiences and valuable life lessons. RESPONSE: Patient initially refused to attend discussion but joined us five minutes into the activity. Patient expressed that she was privileged in her lifetime and through her career had some very rewarding experiences. The life lesson she shared was that if you find a job that you love, youll never work a day in your life. Patient was able to have good communication with her peers. The pt. remained calm and cooperative throughout interview. PLAN: Patient will be invited to attend the next group discussion. Addendum: 08/28/18 at 1153 by MARK MARIEE Amendment: INTERVENTION: Social Work Second Chef invited patient to participate in a group discussion held from 2:00-2:50 pm in the activities room. Social Work Second Chef facilitated a group discussion regarding life experiences and valuable life lessons.
[2018-08-21] MEDS: MONTELUKAST SODIUM 10 MG TABLET PO SCH (17:21)
[2018-08-21 20:00] VITALS: BP 139/60
[2018-08-21] MEDS: LORAZEPAM 1 MG TABLET PO PRN (22:19)
[2018-08-21] MEDS: ZOLPIDEM 5 MG TABLET PO PRN (23:10)
--- NOTE | 2018-08-22 00:58 | NUR ---
SUICIDAL IDEATION NOTE: Pt WAS CALM AND PLEASANT UPON APPROACH AT THE BEGINNING OF THE SHIFT, SEEN SOCIALIZING WITH SELECT PEERS IN THE DAY AREA, WATCHING TV, COOPERATIVE WITH STAFF, AND COMPLIANT WITH MEDS. AT APPROXIMATELY 2145, Pt APPROACHED STAFF STATING SHE IS FEELING OVERWHELMED AND SUICIDAL. NURSE WENT TO Pt AND SAT AT BEDSIDE TO TALK WITH Pt, WHO WAS TEARFUL AND HAD A FLAT AFFECT. DURING CONVERSATION, Pt STATED, "I AM SO DEPRESSED THAT I REALLY DO WANT TO END MY LIFE RIGHT NOW. I DON'T WANT TO BE IN THIS UNIT, AND I CAN'T DO ANYTHING ABOUT IT BECAUSE I HAVE A CONSERVATOR WHO IS AN ASSHOLE THAT DOESN'T RETURN MY CALLS. DON'T FEEL SAD FOR ME BECAUSE I HAVE LIVED A GREAT LIFE AND THERE'S NOTHING ELSE TO BE DONE. THEY'RE TRYING TO PLACE ME IN A PRISON WITH A BUNCH OF OLD PEOPLE WHO ARE CONFUSED AND THAT WILL JUST MAKE ME MORE DEPRESSED. I WOULD RATHER THAN BE LIKE ONE OF THOSE PEOPLE." Pt MOOD BEGAN IMPROVING THE CONVERSATION CARRIED ON. NURSE ASKED THE Pt FOR A SPECIFIC REASON TO WHY SHE CURRENTLY HAS SUICIDAL THOUGHTS. Pt REPORTS THAT SHE IS BEING TREATED LIKE SHE DOES NOT KNOW WHAT IS GOING ON. Pt STATED, "I WANT TO TALK TO THE SHOPPING INSPECTOR AND MY CONSERVATOR ABOUT PLACING ME IN AN ASSISTED LIVING FACILITY IN [place], BUT THEY DON'T EVEN WANT TO LISTEN OR TALK TO ME. I ACTUALLY DO HAVE A PLACE IN [place] THAT I WOULD LOVE TO LIVE AT, BUT THEY DON'T CARE ABOUT MY INPUT. THEY THINK I'M CRAZY BUT I'M REALLY NOT. I JUST WANT TO BE IN A PLACE THAT I CAN FEEL COMFORTABLE LIVING IN. THOSE PEOPLE IN THE MORNING COME IN FOR LESS THAN A MINUTE AND ARE ALWAYS IN A HURRY TO LEAVE. I THOUGHT PSYCHIATRIC HOSPITALS ARE SUPPOSED TO HAVE GOOD COMMUNICATION WITH PATIENTS TO HELP THEM FEEL BETTER. IT'S THE COMPLETE OPPOSITE FOR ME." Pt IS ALSO UPSET DUE TO NOT BEING NOTIFIED OF HER COURT HEARING FOR HER 14 DAY HOLD. Pt WAS TOLD THAT HER HEARING WAS AT 3:30 PM BUT REPORTS THAT IT WAS CHANGED TO 8:00 AM WITHOUT HER KNOWLEDGE. SHE RECEIVED A COPY OF THE HEARING, WHICH STATES THAT SHE REFUSED TO ATTEND THE HEARING, HOWEVER THE Pt REPORTS THAT SHE NEVER REFUSED TO ATTEND AND WAS NOT NOTIFIED OF THE TIME CHANGE. CONVERSATION CARRIED ON, Pt MOOD IMPROVED AND WAS THANKFUL FOR BEING ABLE TO EXPRESS HER CONCERNS. Pt THEN STATED THAT SHE ONLY REPORTED BEING SUICIDAL BECAUSE SHE FELT OVERWHELMED AND HAD NOBODY TO TALK TO, BUT NEVER HAD INTENTIONS ON ACTING ON HER SUICIDAL IDEATION AND NEVER HAD A PLAN. Pt REQUESTED FOR PRN MEDS TO HELP WITH ANXIETY AND SLEEP, GIVEN ATIVAN AND AMBIEN WITH GOOD EFFECT. Pt NOW DENIES S/I AND AGREES TO CONTRACT FOR SAFETY WHILE IN THE HOSPITAL. Pt IS NOW RESTING COMFORTABLY, NO DISTRESS NOTED. NURSING STAFF AWARE OF EVENT AND WILL MONITOR Pt CLOSELY.
[2018-08-22] MEDS: ALBUTEROL SULFATE 2.5 MG/3 ML NEBU NEB SCH ×5 (07:24→21:30)
[2018-08-22] MEDS: IPRATROPIUM BROMIDE 0.5 MG/2.5 ML NEBU NEB SCH ×5 (07:24→21:30)
[2018-08-22 07:30] VITALS: BP 187/88
[2018-08-22] MEDS: LEVOTHYROXINE SODIUM 50 MCG TABLET PO SCH (07:47)
[2018-08-22] MEDS: LEVOTHYROXINE SODIUM 200 MCG TABLET PO SCH (07:47)
[2018-08-22] MEDS: [UNRECOGNIZED DRUG - OTHER] PO SCH (07:51)
[2018-08-22] MEDS: LINZESS 145 MCG PO SCH (07:51)
[2018-08-22] MEDS: DOCUSATE SODIUM 100 MG CAPSULE PO SCH (09:00)
[2018-08-22] MEDS: FUROSEMIDE 20 MG TABLET PO SCH (09:18)
[2018-08-22] MEDS: CARBIDOPA/LEVODOPA 25-100MG TABLET PO SCH ×3 (09:19→17:20)
[2018-08-22] MEDS: FAMOTIDINE 20 MG TABLET PO SCH (09:19)
[2018-08-22] MEDS: AMLODIPINE 5 MG TABLET PO SCH ×2 (09:19→20:14)
[2018-08-22] MEDS: FLUTICASONE/VILANTEROL 1 EACH BLST.W.DEV IH SCH (09:20)
[2018-08-22] MEDS: LIDOCAINE 5% PATCH TD SCH (09:40)
[2018-08-22] MEDS: ACIDOPHILUS/BULGARICUS CHEW TAB PO SCH ×2 (09:43→17:20)
[2018-08-22] MEDS: [UNRECOGNIZED DRUG - OTHER] EACHEYE SCH ×2 (09:44→17:21)
[2018-08-22] MEDS: CYCLOSPORINE EACHEYE SCH ×2 (09:44→17:21)
[2018-08-22] MEDS: LOSARTAN POTASSIUM 25 MG TABLET PO SCH (09:54)
[2018-08-22] MEDS: predniSONE 20 MG TABLET PO SCH ×2 (09:57→17:20)
[2018-08-22] MEDS: OLANZAPINE 2.5 MG TABLET PO SCH (09:59)
--- NOTE | 2018-08-22 11:20 | NUR ---
Manager Automotive Discharge Planning: KODI faxed SNF referrals to [facility] [ ; Attn: Reinaldo; and [facility] [ ; Attn: Kiera]. KODI will continue to follow-up.
[2018-08-22 16:00] VITALS: BP 145/61
--- NOTE | 2018-08-22 16:16 | NUR ---
Firearms Report: KODI completed and submitted [employer] Firearms Report for 5150 DTS/GD certification.
--- NOTE | 2018-08-22 17:00 | NUR ---
Gps/Timber Management Professor- Showered self ind. after set up, claimed she needed to shower r/t she will be discharged in am, does not shower in the morning per patient. Had routine resp. tx. moist coughing noted.
[2018-08-22] MEDS: MONTELUKAST SODIUM 10 MG TABLET PO SCH (17:20)
[2018-08-22] MEDS: OLANZAPINE 5 MG TABLET PO SCH (20:15)
[2018-08-22 20:55] VITALS: BP 151/65
[2018-08-22] MEDS ORDERED: OLANZAPINE 2.5 MG TABLET PO SCH (21:00)
[2018-08-22] MEDS: ZOLPIDEM 5 MG TABLET PO PRN (22:21)
--- NOTE | 2018-08-22 22:40 | NUR ---
Patient asked for sleeping pill. Ambien 5 mg tab was given. Continue to monitor.
[2018-08-23] MEDS: GUAIFENESIN/DEXTROMETHORPHAN 5 ML UDC PO PRN ×3 (00:30→22:52)
--- NOTE | 2018-08-23 00:40 | NUR ---
Patient complained of cough. Robitussin 10 ml was given. Continue to monitor.
[2018-08-23] MEDS: LEVOTHYROXINE SODIUM 50 MCG TABLET PO SCH (06:47)
[2018-08-23] MEDS: LEVOTHYROXINE SODIUM 200 MCG TABLET PO SCH (06:47)
[2018-08-23] MEDS: [UNRECOGNIZED DRUG - OTHER] PO SCH (06:48)
[2018-08-23] MEDS: LINZESS 145 MCG PO SCH (06:48)
[2018-08-23 07:30] VITALS: BP 187/92
[2018-08-23] MEDS: ALBUTEROL SULFATE 2.5 MG/3 ML NEBU NEB SCH ×4 (08:11→19:30)
[2018-08-23] MEDS: IPRATROPIUM BROMIDE 0.5 MG/2.5 ML NEBU NEB SCH ×4 (08:11→19:30)
[2018-08-23] MEDS: predniSONE 20 MG TABLET PO SCH ×2 (08:40→18:13)
[2018-08-23] MEDS: ACIDOPHILUS/BULGARICUS CHEW TAB PO SCH ×2 (08:40→18:13)
[2018-08-23] MEDS: OLANZAPINE 5 MG TABLET PO SCH ×2 (08:40→20:18)
[2018-08-23] MEDS: AMLODIPINE 5 MG TABLET PO SCH ×2 (08:41→20:17)
[2018-08-23] MEDS: LOSARTAN POTASSIUM 25 MG TABLET PO SCH (08:42)
[2018-08-23] MEDS: LIDOCAINE 5% PATCH TD SCH (08:42)
[2018-08-23] MEDS: CARBIDOPA/LEVODOPA 25-100MG TABLET PO SCH ×3 (08:42→18:13)
[2018-08-23] MEDS: DOCUSATE SODIUM 100 MG CAPSULE PO SCH (08:42)
[2018-08-23] MEDS: FUROSEMIDE 20 MG TABLET PO SCH (08:42)
[2018-08-23] MEDS: FAMOTIDINE 20 MG TABLET PO SCH (08:42)
[2018-08-23] MEDS: FLUTICASONE/VILANTEROL 1 EACH BLST.W.DEV IH SCH (08:43)
[2018-08-23] MEDS: CYCLOSPORINE EACHEYE SCH ×2 (08:52→18:13)
[2018-08-23] MEDS: [UNRECOGNIZED DRUG - OTHER] EACHEYE SCH ×2 (08:52→18:13)
--- NOTE | 2018-08-23 13:45 | NUR ---
Discharge Planning: ground worker left voicemail for patient probate conservator, Alex Balderas [[phone]], to discuss discharge planning. Patient has been accepted at [facility] for SNF placement. ground worker awaiting call back.
[2018-08-23 15:32] VITALS: BP 124/57
[2018-08-23] MEDS: MONTELUKAST SODIUM 10 MG TABLET PO SCH (18:12)
[2018-08-23 20:35] VITALS: BP 158/70
--- NOTE | 2018-08-23 20:36 | NUR ---
Received pt watching TV in the dining room. AAO x3. No acute distress noted. No c/o pain or discomfort. Cooperative. Denies SI, hallucination. All due meds given as ordered. Pt ambulates independently. Safety measures maintained. Will continue to monitor.
[2018-08-23] MEDS: LORAZEPAM 1 MG TABLET PO PRN (22:12)
--- NOTE | 2018-08-23 22:23 | NUR ---
Pt is feeling anxious and upset regarding her house in [place] being sold. Pt requested for Ativan and was provided. After talking to the pt and releasing her emotions, she appeared to have calmed down. Continue to monitor.
[2018-08-23] MEDS: ZOLPIDEM 5 MG TABLET PO PRN (23:55)
[2018-08-24] MEDS: LEVOTHYROXINE SODIUM 200 MCG TABLET PO SCH (06:14)
[2018-08-24] MEDS: LEVOTHYROXINE SODIUM 50 MCG TABLET PO SCH (06:14)
[2018-08-24 07:30] VITALS: BP 166/79
[2018-08-24] MEDS: [UNRECOGNIZED DRUG - OTHER] PO SCH (07:30)
[2018-08-24] MEDS: LINZESS 145 MCG PO SCH (07:30)
[2018-08-24] MEDS: ALBUTEROL SULFATE 2.5 MG/3 ML NEBU NEB SCH ×4 (07:35→21:13)
[2018-08-24] MEDS: IPRATROPIUM BROMIDE 0.5 MG/2.5 ML NEBU NEB SCH ×4 (07:35→21:13)
[2018-08-24] MEDS: predniSONE 20 MG TABLET PO SCH ×2 (08:14→17:23)
[2018-08-24] MEDS: LOSARTAN POTASSIUM 25 MG TABLET PO SCH (09:09)
[2018-08-24] MEDS: FUROSEMIDE 20 MG TABLET PO SCH (09:09)
[2018-08-24] MEDS: LIDOCAINE 5% PATCH TD SCH (09:09)
[2018-08-24] MEDS: OLANZAPINE 5 MG TABLET PO SCH ×2 (09:10→20:26)
[2018-08-24] MEDS: FAMOTIDINE 20 MG TABLET PO SCH (09:10)
[2018-08-24] MEDS: ACIDOPHILUS/BULGARICUS CHEW TAB PO SCH ×2 (09:10→17:23)
[2018-08-24] MEDS: CARBIDOPA/LEVODOPA 25-100MG TABLET PO SCH ×3 (09:11→17:24)
[2018-08-24] MEDS: AMLODIPINE 5 MG TABLET PO SCH ×2 (09:11→20:26)
[2018-08-24] MEDS: FLUTICASONE/VILANTEROL 1 EACH BLST.W.DEV IH SCH (09:11)
[2018-08-24] MEDS: [UNRECOGNIZED DRUG - OTHER] EACHEYE SCH ×2 (09:12→17:24)
[2018-08-24] MEDS: CYCLOSPORINE EACHEYE SCH ×2 (09:12→17:24)
[2018-08-24] MEDS: DOCUSATE SODIUM 100 MG CAPSULE PO SCH (09:22)
[2018-08-24 11:26] VITALS: BP 139/73
[2018-08-24] MEDS: NITROGLYCERIN 0.4 MG/TAB BOTTLE SL PRN ×2 (11:27→19:49)
--- NOTE | 2018-08-24 11:40 | NUR ---
Pt c/o chest pain 8/10. BP 139/73, pulse 100. PRN Nitroquick 0.4mg SL was given at 1127, with good results, at 1133, pt said the pain is 5/10 and getting better.
[2018-08-24 16:00] VITALS: BP 123/66
[2018-08-24] MEDS: MONTELUKAST SODIUM 10 MG TABLET PO SCH (17:24)
--- NOTE | 2018-08-24 19:50 | NUR ---
GPS: Received patient sitting in day room watching tv, patient c/o chest pain 01/22. BP 122/55, hr 62 PRN Nitroquick 0.4mg SL was given at 19:47 pm, with good results, at 1951, pt said the pain is 3/10 and getting better. b/p 128/62 hr 68 @ this time. continue monitoring for safety.
[2018-08-24 20:01] VITALS: BP 122/55
--- NOTE | 2018-08-25 06:44 | NUR ---
GPS: REMAIN CALM AND COOPERATIVE WITH MEDICATIONS AND CARE. SLEPT 7 HRS THROUGH THE NIGHT. NO C/O CHEST PAIN OR DISCOMFORT AT THIS TIME. CONTINUE PLAN OF CARE.
[2018-08-25] MEDS: LEVOTHYROXINE SODIUM 200 MCG TABLET PO SCH (06:48)
[2018-08-25] MEDS: LEVOTHYROXINE SODIUM 50 MCG TABLET PO SCH (06:48)
[2018-08-25] MEDS: LINZESS 145 MCG PO SCH (06:49)
[2018-08-25] MEDS: [UNRECOGNIZED DRUG - OTHER] PO SCH (06:49)
[2018-08-25 08:03] VITALS: BP 169/75
[2018-08-25] MEDS: FAMOTIDINE 20 MG TABLET PO SCH (08:45)
[2018-08-25] MEDS: predniSONE 20 MG TABLET PO SCH ×2 (08:45→17:19)
[2018-08-25] MEDS: LIDOCAINE 5% PATCH TD SCH (08:45)
[2018-08-25] MEDS: LOSARTAN POTASSIUM 25 MG TABLET PO SCH (08:46)
[2018-08-25] MEDS: OLANZAPINE 5 MG TABLET PO SCH ×2 (08:46→20:40)
[2018-08-25] MEDS: FUROSEMIDE 20 MG TABLET PO SCH (08:47)
[2018-08-25] MEDS: ACIDOPHILUS/BULGARICUS CHEW TAB PO SCH ×2 (08:47→16:18)
[2018-08-25] MEDS: DOCUSATE SODIUM 100 MG CAPSULE PO SCH (08:47)
[2018-08-25] MEDS: AMLODIPINE 5 MG TABLET PO SCH ×2 (08:47→20:40)
[2018-08-25] MEDS: IPRATROPIUM BROMIDE 0.5 MG/2.5 ML NEBU NEB SCH ×4 (08:48→22:03)
[2018-08-25] MEDS: [UNRECOGNIZED DRUG - OTHER] EACHEYE SCH ×2 (08:48→16:22)
[2018-08-25] MEDS: ALBUTEROL SULFATE 2.5 MG/3 ML NEBU NEB SCH ×4 (08:48→22:03)
[2018-08-25] MEDS: CYCLOSPORINE EACHEYE SCH ×2 (08:48→16:22)
[2018-08-25] MEDS: FLUTICASONE/VILANTEROL 1 EACH BLST.W.DEV IH SCH (08:49)
[2018-08-25] MEDS: CARBIDOPA/LEVODOPA 25-100MG TABLET PO SCH ×3 (08:49→16:18)
[2018-08-25] MEDS: ACETAMINOPHEN 325 MG TABLET PO PRN (16:19)
[2018-08-25 16:48] VITALS: BP 149/70
[2018-08-25] MEDS: MONTELUKAST SODIUM 10 MG TABLET PO SCH (17:19)
[2018-08-25 20:26] VITALS: BP 139/52
[2018-08-25] MEDS: ATORVASTATIN 20 MG TABLET PO SCH (20:39)
[2018-08-26] MEDS: ZOLPIDEM 5 MG TABLET PO PRN ×2 (00:02→22:19)
[2018-08-26] MEDS: NITROGLYCERIN 0.4 MG/TAB BOTTLE SL PRN (00:03)
--- NOTE | 2018-08-26 00:05 | NUR ---
C/o 8-10 C/p no sob. dizziness, faintness, or n/v B/p 147/92 given Nitro 0.4mg S/l after 5 minutes 3 out 10 Chest pain.
[2018-08-26] MEDS: GUAIFENESIN/DEXTROMETHORPHAN 5 ML UDC PO PRN ×2 (01:00→22:40)
--- NOTE | 2018-08-26 01:00 | NUR ---
C/o productive cough given Robitussin Dm syrup.
[2018-08-26] MEDS: LEVOTHYROXINE SODIUM 50 MCG TABLET PO SCH (06:00)
[2018-08-26] MEDS: LEVOTHYROXINE SODIUM 200 MCG TABLET PO SCH (06:00)
--- NOTE | 2018-08-26 06:18 | NUR ---
Awake in bed upset that she was woken up early this am slept 4.3 hr during the shift. Return to bed resting comfortably. Refusing shower this am
[2018-08-26 07:30] VITALS: BP 173/87
[2018-08-26] MEDS: ACIDOPHILUS/BULGARICUS CHEW TAB PO SCH ×2 (08:47→16:15)
[2018-08-26] MEDS: AMLODIPINE 5 MG TABLET PO SCH ×2 (08:47→20:56)
[2018-08-26] MEDS: FUROSEMIDE 20 MG TABLET PO SCH (08:48)
[2018-08-26] MEDS: DOCUSATE SODIUM 100 MG CAPSULE PO SCH (08:48)
[2018-08-26] MEDS: FAMOTIDINE 20 MG TABLET PO SCH (08:48)
[2018-08-26] MEDS: FLUTICASONE/VILANTEROL 1 EACH BLST.W.DEV IH SCH (08:50)
[2018-08-26] MEDS: CARBIDOPA/LEVODOPA 25-100MG TABLET PO SCH ×3 (08:50→16:15)
[2018-08-26] MEDS: predniSONE 20 MG TABLET PO SCH ×2 (08:53→18:06)
[2018-08-26] MEDS: LOSARTAN POTASSIUM 50 MG TABLET PO SCH (08:54)
[2018-08-26] MEDS: [UNRECOGNIZED DRUG - OTHER] EACHEYE SCH ×2 (09:00→17:34)
[2018-08-26] MEDS: CYCLOSPORINE EACHEYE SCH ×2 (09:00→17:34)
[2018-08-26] MEDS ORDERED: LOSARTAN POTASSIUM 25 MG TABLET PO SCH (09:00)
[2018-08-26] MEDS: OLANZAPINE 5 MG TABLET PO SCH ×2 (09:06→20:57)
[2018-08-26] MEDS: LIDOCAINE 5% PATCH TD SCH (09:06)
[2018-08-26] MEDS: LINZESS 145 MCG PO SCH (09:08)
[2018-08-26] MEDS: [UNRECOGNIZED DRUG - OTHER] PO SCH (09:08)
[2018-08-26] MEDS: ALBUTEROL SULFATE 2.5 MG/3 ML NEBU NEB SCH ×4 (11:00→20:24)
[2018-08-26] MEDS: IPRATROPIUM BROMIDE 0.5 MG/2.5 ML NEBU NEB SCH ×4 (11:01→20:24)
--- NOTE | 2018-08-26 13:45 | NUR ---
Insurance And Benefits Clerk Discharge Planning: At 0930; SW placed call to pt's Probate Conservator, Alex Balderas ([phone]) to discuss discharge planning. There was no answer, so SW left a message for a return call. At 1000: SW met with patient at bedside with Dr. Villarreal and Dr. Harris to discuss discharge planning. Patient expressed her wish to return to her home in [place] or to 2 different ALFs in the [place] area. Patient was reminded that her home is being sold, and is currently in escrow, and she does not have the financial means to afford the FDC at this time until her house is sold. Provided reassurance that SNF placement would ensure her safety and would be covered by her Medicare Insurance. Patient verbalized understanding and agreed to be discharged to a SNF of her Conservator's choice. At 1100: SW attempted to contact pt's Conservator again. Automated message started during the call stating, "The person you are trying to reach is not accepting calls at this time. The mailbox is full." At 1230: SW attempted to contact pt's Conservator. Automated message from above occurred again. At 1330: SW attempted a call again to pt's Conservator. Automated message occurred again. SW will continue to attempt to contact pt's Probate Conservator to ensure a safe and proper discharge for the patient.
--- NOTE | 2018-08-26 14:08 | NUR ---
received alert on bed, verbally responsive, with good insight on her condition, seen by the medical family health nurse practitioner , with orders made and carried out, no sign of SOB and other distress at tis time
[2018-08-26 15:41] VITALS: BP 132/61
[2018-08-26] MEDS ORDERED: IBUPROFEN 600 MG TABLET PO PRN (16:15)
--- NOTE | 2018-08-26 16:40 | NUR ---
GROUP NOTE: GOAL Patient will actively participate in the group discussion of the day or listen respectfully to other peers responses. INTERVENTION Social Work Manager Support invited patient to participate in a group discussion held from 2:00-2:45 pm in the activities room. Social Work Manager Support facilitated a group discussion regarding the types of love languages and ways in which they demonstrate their care for others. RESPONSE Patient was open to participating in group discussion. Pt. was in pleasant mood and had a smile on her face throughout group. Pt. interacted well with her peers and respected others when they were sharing. Patient expressed she likes to do things for other as well as express words of affirmation to show others she cares. Pt. stayed on topic and remained present throughout group. PLAN Patient will be invited to attend the next group discussion.
[2018-08-26] MEDS: MONTELUKAST SODIUM 10 MG TABLET PO SCH (18:06)
[2018-08-26 20:32] VITALS: BP 127/67
[2018-08-26] MEDS: ATORVASTATIN 20 MG TABLET PO SCH (20:56)
--- NOTE | 2018-08-27 04:52 | NUR ---
Patient received watching TV in TV room, AAO x4. No sign of acute distress or SOB was noted. Pleasant upon approach, cooperative and calm. Compliant with medication. Had breathing treatment. Asked for sleeping pill, Ambien 5 mg tab given, effective. Had cough, Robitussin given, effective. Patient was stable and had a good sleep last night. All medication given and well tolerated. Safety measures maintained. Will continue to monitor and endorse to the day shift nurse accordingly.
[2018-08-27] MEDS: LEVOTHYROXINE SODIUM 50 MCG TABLET PO SCH (06:49)
[2018-08-27] MEDS: LEVOTHYROXINE SODIUM 200 MCG TABLET PO SCH (06:49)
[2018-08-27 07:30] VITALS: BP 162/76
[2018-08-27] MEDS: LINZESS 145 MCG PO SCH (07:30)
[2018-08-27] MEDS: [UNRECOGNIZED DRUG - OTHER] PO SCH (07:30)
[2018-08-27] MEDS: IPRATROPIUM BROMIDE 0.5 MG/2.5 ML NEBU NEB SCH ×5 (07:35→20:28)
[2018-08-27] MEDS: ALBUTEROL SULFATE 2.5 MG/3 ML NEBU NEB SCH ×5 (07:35→20:28)
[2018-08-27] MEDS: predniSONE 20 MG TABLET PO SCH ×2 (08:00→17:35)
--- NOTE | 2018-08-27 09:49 | NUR ---
Informatica Mdm Developer Discharge Planning: KODI consulted with Dr. Villarreal about placement for the patient. This continuity writer informed Dr. Villarreal that pt's Conservator, Alex Balderas ([phone]) is difficult to get in touch with at the time, and his phone number seems to be out of service at this time. SW met with patient at bedside to discuss difficulties of getting in touch with her Conservator. Per pt, Alex has another number to reach him ([phone]). KODI attempted to reach Conservator at that number, and there was no answer. KODI left a message for a return call. SW will continue to follow-up. Addendum: 08/27/18 at 1324 by PAM CANNON KODI placed another call to patient's Conservator, Alex Balderas at ([phone]) and was able to speak to him about pt's discharge plan. Pt's conservator chose to have patient placed at [facility] [Address: [id number] [place] [id number]; ]. KODI alerted Dr. Villarreal, and set a tentative discharge for tomorrow (08/27/18).
[2018-08-27] MEDS: AMLODIPINE 5 MG TABLET PO SCH ×2 (10:37→20:40)
[2018-08-27] MEDS: OLANZAPINE 5 MG TABLET PO SCH ×2 (10:38→20:40)
[2018-08-27] MEDS: FAMOTIDINE 20 MG TABLET PO SCH (10:38)
[2018-08-27] MEDS: LOSARTAN POTASSIUM 50 MG TABLET PO SCH (10:38)
[2018-08-27] MEDS: FUROSEMIDE 20 MG TABLET PO SCH (10:38)
[2018-08-27] MEDS: DOCUSATE SODIUM 100 MG CAPSULE PO SCH (10:38)
[2018-08-27] MEDS: ACIDOPHILUS/BULGARICUS CHEW TAB PO SCH ×2 (10:39→16:22)
[2018-08-27] MEDS: FLUTICASONE/VILANTEROL 1 EACH BLST.W.DEV IH SCH (10:40)
[2018-08-27] MEDS: CYCLOSPORINE EACHEYE SCH ×2 (10:41→16:22)
[2018-08-27] MEDS: [UNRECOGNIZED DRUG - OTHER] EACHEYE SCH ×2 (10:41→16:22)
[2018-08-27] MEDS: LIDOCAINE 5% PATCH TD SCH (10:41)
[2018-08-27] MEDS: CARBIDOPA/LEVODOPA 25-100MG TABLET PO SCH ×3 (10:43→16:22)
[2018-08-27 16:51] VITALS: BP 130/66
[2018-08-27] MEDS: MONTELUKAST SODIUM 10 MG TABLET PO SCH (17:35)
--- NOTE | 2018-08-27 18:48 | NUR ---
Patient received was initially sleeping in bed and woke up for breakfast. patient is alert and oriented x2. Patient is ambulatory and able to carry out self care independently. Patient is able to verbalize needs and neesd have been attended to. patient denies any respirotory distress or pain at this time. patient has a well understanding of health and medications. Patient is cooperative with staff and socialize with other patients on the unit. patient spend most of her day in the activities room. Will continue to monitor and endorse poc to the assistant shift supervisor.
[2018-08-27 20:00] VITALS: BP 119/59
[2018-08-27] MEDS: ATORVASTATIN 20 MG TABLET PO SCH (20:40)
[2018-08-27] MEDS: ACETAMINOPHEN 325 MG TABLET PO PRN (20:40)
[2018-08-27] MEDS: ZOLPIDEM 5 MG TABLET PO PRN (22:33)
[2018-08-28] MEDS: LEVOTHYROXINE SODIUM 50 MCG TABLET PO SCH (06:53)
[2018-08-28] MEDS: LEVOTHYROXINE SODIUM 200 MCG TABLET PO SCH (06:53)
[2018-08-28] MEDS: LINZESS 145 MCG PO SCH (06:54)
[2018-08-28] MEDS: [UNRECOGNIZED DRUG - OTHER] PO SCH (06:54)
[2018-08-28 07:30] VITALS: BP 161/84
[2018-08-28] MEDS: IPRATROPIUM BROMIDE 0.5 MG/2.5 ML NEBU NEB SCH ×2 (07:35→11:30)
[2018-08-28] MEDS: ALBUTEROL SULFATE 2.5 MG/3 ML NEBU NEB SCH ×2 (07:35→11:30)
--- NOTE | 2018-08-28 08:11 | NUR ---
DC Note: Patient will be discharged to [facility] [Address: [address] [place] [id number]; ] via ambulance. Please arrange an ambulance for this patient. Spoke with Kiera, Stone Paver, at the facility who states they are ready to accept the patient today. Patient will be in room 2A. Spoke with patients Probate Conservator, Alex Balderas ([phone]) who is aware and agreeable with discharge plan. Patient is aware and agreeable with discharge plan. Patient will follow-up at the facility with Dr. Licona (Hydraulic Blocker) and Dr. Villarreal (Psychiatrist).
[2018-08-28] MEDS: OLANZAPINE 5 MG TABLET PO SCH (08:17)
[2018-08-28] MEDS: DOCUSATE SODIUM 100 MG CAPSULE PO SCH (08:17)
[2018-08-28] MEDS: LOSARTAN POTASSIUM 50 MG TABLET PO SCH (08:18)
[2018-08-28] MEDS: ACIDOPHILUS/BULGARICUS CHEW TAB PO SCH (08:18)
[2018-08-28] MEDS: CARBIDOPA/LEVODOPA 25-100MG TABLET PO SCH (08:18)
[2018-08-28 08:19] VITALS: BP 161/84
[2018-08-28] MEDS: AMLODIPINE 5 MG TABLET PO SCH (08:19)
[2018-08-28] MEDS: FUROSEMIDE 20 MG TABLET PO SCH (08:19)
[2018-08-28] MEDS: predniSONE 20 MG TABLET PO SCH (08:19)
[2018-08-28] MEDS: FAMOTIDINE 20 MG TABLET PO SCH (08:19)
[2018-08-28] MEDS: CYCLOSPORINE EACHEYE SCH (08:20)
[2018-08-28] MEDS: FLUTICASONE/VILANTEROL 1 EACH BLST.W.DEV IH SCH (08:20)
[2018-08-28] MEDS: [UNRECOGNIZED DRUG - OTHER] EACHEYE SCH (08:20)
[2018-08-28] MEDS: LIDOCAINE 5% PATCH TD SCH (08:20)
--- NOTE | 2018-08-28 11:46 | NUR ---
PATIENT IS BEING PICKED UP BY AN AMBULANCE TO BE DISCHARGED TO [facility]. PT IS WILLING TO GO, COOPERATIVE. VS ARE STABLE. PT IS A/O X4. DISCHARGE INSTRUCTIONS ARE GIVEN, PT VERBALIZES UNDERSTANDING. NO DISTRESS NOTED. ALL BELONGING RETURNED AND ALL FORMS ARE SIGNED.
== END 2018-08-28 11:49 | DRG 885 ==
LOC: GPS 17:05
PROVIDERS: ADMIT Psychiatry & Neurology Psychiatry; ATTEND Internal Medicine
DX: F31.9 Bipolar disorder, unspecified (principal); J44.1 Chronic obstructive pulmonary disease with (acute) exacerbation; I11.0 Hypertensive heart disease with heart failure; J18.9 Pneumonia, unspecified organism; E87.1 Hypo-osmolality and hyponatremia; D68.59 Other primary thrombophilia; I50.30 Unspecified diastolic (congestive) heart failure; J98.11 Atelectasis; J44.0 Chronic obstructive pulmonary disease with (acute) lower respiratory infection; F25.9 Schizoaffective disorder, unspecified; Z91.14 Patient's other noncompliance with medication regimen; M79.7 Fibromyalgia; R53.82 Chronic fatigue, unspecified; E78.5 Hyperlipidemia, unspecified; Z88.1 Allergy status to other antibiotic agents; Z74.09 Other reduced mobility; M19.90 Unspecified osteoarthritis, unspecified site; Z87.891 Personal history of nicotine dependence; F03.90 Unspecified dementia, unspecified severity, without behavioral disturbance, psychotic disturbance, mood disturbance, and anxiety; E88.09 Other disorders of plasma-protein metabolism, not elsewhere classified; E11.9 Type 2 diabetes mellitus without complications; E03.9 Hypothyroidism, unspecified; I70.0 Atherosclerosis of aorta
CPT/HCPCS: 36415; 71045; 84443; 84550; 93005; 94640; J3590; J7512